=== PATIENT | female | born 1990 | race Caucasian/White ===

== ENCOUNTER → 2017-08-16 16:18 | Outpatient (CLI) | payer OTHER, SELFPAY ==
[2017-08-16 15:56] VITALS: BP 130/72; BMI 23.8
[2017-08-16 17:04] LABS: Absolute Lymphocyte Count 2.72 X10^3/ul (0.83-4.51); Absolute Neutrophil Count 6.4 X10^3/uL (2.0-7.7); Basophil# 0.01 X10^3/uL; Basophil% 0.1 % (0-1); Eosinophil# 0.15 X10^3/uL; Eosinophils% 1.5 % (0-5); Hematocrit 36.7 % (37-47); Hemoglobin 12.9 g/dl (12.0-15.0); Lymphocyte # 2.72 X10^3/ul (4.0); Mean Corp Hgb Conc 35.1 g/gl (32-36); Mean Corpuscular Hgb 29.5 pg (27.0-32.0); Mean Platelet Vol. 9.8 fl (6.2-12.0); Monocyte# 0.79 X10^3/uL; Monocyte% 7.8 % (0-10); Neutrophil # 6.39 X10^3/uL (2.7-7.7); Neutrophil % 63.4 % (47-70); Platelet Count 241 K/mm3 (150-450); RBC Distribution Width CV 12.8 % (11.6-14.6); RBC Distribution Width SD 38.2 fl (35.1-43.9); Red Blood Count 4.37 M/mm3 (4.2-5.4); White Blood Count 10.1 K/mm3 (4.4-11.0)
[2017-08-16 17:10] LABS: POSITIVE COUNT NO; POSITIVE DIFFERENTIAL NO; POSITIVE MORPHOLOGY NO
[2017-08-17 08:56] LABS: Rubella IgG 45.4 IU/mL
[2017-08-18 07:07] LABS: HIV 1/0/2 SCREEN 4TH GEN Non Reactive (Non Reactive)
[2017-08-18 13:14] LABS: HEPATITIS B SURFACE AG Negative (Negative)
[2017-08-19 03:49] LABS: Rapid Plasmin Reagin (RPR) NONREACTIVE (NONREACTIVE)
== END ==
PROVIDERS: Family Provider Family Medicine; PCP Family Medicine; Visit Provider Obstetrics & Gynecology
DX: Z34.90 Encounter for supervision of normal pregnancy, unspecified, unspecified trimester (principal)
CPT/HCPCS: 85025; 86592; 86703; 86762; 86850; 86900; 87340

== ENCOUNTER → 2017-10-10 15:53 | Outpatient (CLI) | payer OTHER, SELFPAY ==
--- NOTE | 2017-10-10 15:54 | US_ITS ---
STUDY: SECOND AND THIRD TRIMESTER OBSTETRICAL ULTRASOUND REASON FOR EXAM: Female, 27 years old. 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 LMP: 05/29/2017 TECHNIQUE: Transabdominal PRIOR ULTRASOUND: None. FINDINGS: There is a single intrauterine fetus. The fetus is in a variable presentation. There is demonstrated cardiac activity with a heart rate of 152 bpm. There is a normal amniotic fluid volume. The largest amniotic fluid pocket measures 4.5 cm. The placenta is posterior in location and is not low lying. There are Grade 1 placental changes. The cervix measures 3.6 cm in length. The bilateral adnexal regions are normal. BIOMETRY: BPD: 4.5: 19 weeks, 5 days HC: 16.5: 19 weeks, 2 days AC: 14.5: 19 weeks, 6 days FL: 3.2: 19 weeks, 6 days CI: FL/BPD: FL/HC: FL/AC: HC/AC: age by current US: 19 weeks, 5 days. MARY by current US: 03/01/2018. Estimated weight: 309 grams, +/- 45 grams, 79 %. age by prior US: weeks, days. MARY by prior US: . Age by LMP: 19 weeks, 1 days. MARY by LMP: 03/05/2018. ANATOMY: Gender: Female Cranium: Normal lateral ventricles. Normal choroid plexus. Normal cerebellum. Normal cisterna magna. Normal face, nose and lips. Chest: Normal 4-chamber heart. Abdomen/Pelvis: Normal diaphragm. Normal stomach. Normal abdominal wall. Normal cord insertion. Normal 3 vessel cord. Normal kidneys. Normal bladder. Spine: Normal cervical spine. Normal thoracic spine. Normal lumbar spine. Normal sacrum. Extremities: Normal bilateral upper extremities. Normal bilateral lower extremities. US/OB Anatomy Scan IMPRESSION: Single live fetus in a variable presentation. No demonstrated anatomic abnormality. Placenta is grade 1 and is not low-lying. Cervix is closed. age by current US: 19 weeks, 5 days. MARY by current US: 03/01/2018. Estimated weight: 309 grams, +/- 45 grams, 79 %. Electronically Signed: Quincy Daley MD at 12:44 EDT , Service support ,
== END ==
PROVIDERS: Visit Provider Obstetrics & Gynecology
DX: Z34.90 Encounter for supervision of normal pregnancy, unspecified, unspecified trimester (principal)
CPT/HCPCS: 76805

== ENCOUNTER → 2017-12-14 13:43 | Outpatient (CLI) | payer OTHER, SELFPAY ==
--- NOTE | 2017-12-14 13:43 | DT_ITS ---
This patient was seen during an EMR downtime December 12, 2017 - December 19, 2017. This patient may have a combination of paper and electronic documentation or all paper documentation. All documentation is viewable within the e-chart portion of [employer] for each patient visit.
[2017-12-19 10:46] LABS: Absolute Lymphocyte Count 1.92 X10^3/ul (0.83-4.51); Absolute Neutrophil Count 7.3 X10^3/uL (2.0-7.7); Basophil% 0.1 % (0-1); Eosinophils% 0.8 % (0-5); Hematocrit 37.2 % (37-47); Hemoglobin 12.8 g/dl (12.0-15.0); Lymphocyte # 1.92 X10^3/ul (4.0); Lymphocyte % 18.7 % (19-41); Mean Corp Hgb Conc 34.4 g/gl (32-36); Mean Corpuscular Hgb 31.8 pg (27.0-32.0); Mean Corpuscular Volume 92.5 fL (81-99); Mean Platelet Vol. 10.5 fl (6.2-12.0); Monocyte% 8.6 % (0-10); Neutrophil # 7.34 X10^3/uL (2.7-7.7); Neutrophil % 71.4 % (47-70); POSITIVE COUNT NO; POSITIVE DIFFERENTIAL NO; POSITIVE MORPHOLOGY NO; Platelet Count 160 K/mm3 (150-450); RBC Distribution Width SD 46.8 fl (35.1-43.9); Red Blood Count 4.02 M/mm3 (4.2-5.4); White Blood Count 10.3 K/mm3 (4.4-11.0)
[2017-12-19 10:55] LABS: Glucose Challenge Gest 1H 50g 115 mg/dL (70-140)
== END ==
PROVIDERS: Visit Provider Obstetrics & Gynecology
DX: Z34.02 Encounter for supervision of normal first pregnancy, second trimester (principal)
CPT/HCPCS: 82950; 85025; 86850; 86900

== ENCOUNTER → 2018-02-02 18:04 | Outpatient (CLI) | payer OTHER, SELFPAY ==
[2018-02-02 18:50] LABS: Protein, Urine (Random) 24.9 mg/dL (<11.9); Protein:Creat Ratio 657 mg/g CRE (0-200)
== END ==
PROVIDERS: Visit Provider Obstetrics & Gynecology
DX: O16.3 Unspecified maternal hypertension, third trimester (principal); Z3A.00 Weeks of gestation of pregnancy not specified
CPT/HCPCS: 82570; 84156

== ENCOUNTER 2018-02-05 22:00 | Outpatient (CLI) | payer OTHER, SELFPAY ==
[2018-02-05 23:18] LABS: Hematocrit 38.7 % (37-47); Hemoglobin 13.2 g/dl (12.0-15.0); Mean Corp Hgb Conc 34.1 g/gl (32-36); Mean Corpuscular Hgb 31.6 pg (27.0-32.0); Mean Corpuscular Volume 92.6 fL (81-99); Mean Platelet Vol. 10.6 fl (6.2-12.0); Platelet Count 149 K/mm3 (150-450); RBC Distribution Width CV 13.9 % (11.6-14.6); RBC Distribution Width SD 46.4 fl (35.1-43.9); Red Blood Count 4.18 M/mm3 (4.2-5.4); White Blood Count 11.6 K/mm3 (4.4-11.0)
[2018-02-05 23:19] LABS: Scan Indicated on CBC? Y/N NO
[2018-02-05 23:24] LABS: Protein, Urine (Random) 11.5 mg/dL (<11.9); Protein:Creat Ratio 125 mg/g CRE (0-200)
[2018-02-05 23:30] LABS: AST(SGOT) 19 U/L (15-37); Alanine Aminotransfer ALT/SGPT 20 U/L (13-56); Creatinine, Serum 0.52 mg/dL (0.55-1.02); EST Glomerular Filtration Rate 153 mL/min (>60); Est Glom Filt Rate - Afr Amer 186 mL/min (>60); Uric Acid 3.9 mg/dL (2.6-6.0)
[2018-02-05] MEDS: Betamethasone/Betamethasone 30 MG/5 ML Vial 12 MG IM (23:37)
[2018-02-05 23:39] LABS: International Normalized Ratio 1.1; Prothrombin Time (Protime)PT. 14.1 SECONDS (11.7-14.9)
[2018-02-05 23:40] LABS: Partial Thromboplast Time 24.6 Seconds (24.1-36.2)
[2018-02-06 00:13] VITALS: BMI 28.0
--- NOTE | 2018-02-08 01:33 | OB.TRI.NOTE ---
- Problem List (1) Elevated blood pressure affecting in third trimester, antepartum Status: Acute History of Present Illness Date of Service: 02/05/18 Was patient seen by the physician?: No Reason For Visit: R/O LABOR Date of Service: 02/05/18 History of Present Illness: elevated bps at home, had proteinuria last week and has been followed closely for this. denies VALENCIA BV Allergies No Known Allergies Allergy (Verified 02/06/18 20:07) - Pertinent Past Medical History Medical History: Past Medical History (Last Reviewed 02/06/18 @ 13:58 by Lalitha Ba) acl reconstructive surgery NST - FHR Rate Baby A Baseline: 140 Variability:: Moderate Accelerations:: 15 x 15 Decelerations:: None NST Reactive:: Yes FHR Category:: Category I Uterine Activity:: no regular Impression/Plan elevated bps at home- normal in triage, normal labs and repeat urine pr/cr ratio is normal. dc home preeclampsia precautions, reacitve nst
== END 2018-02-06 00:35 | disposition home or self-care (01) ==
LOC: WPOUT 22:31 → WP 22:57
PROVIDERS: Visit Provider Obstetrics & Gynecology
DX: O26.893 Other specified pregnancy related conditions, third trimester (principal); R03.0 Elevated blood-pressure reading, without diagnosis of hypertension; Z3A.00 Weeks of gestation of pregnancy not specified
CPT/HCPCS: 36415; 59025; 59050; 82565; 82570; 84156; 84450; 84460; 84550; 85027; 85610; 85730; 96372; 99218; G0378; J0702

== ENCOUNTER → 2018-02-06 14:53 | Outpatient (CLI) | payer OTHER, SELFPAY ==
[2018-02-06 17:16] LABS: Group B Strep DNA By PCR Negative (Negative); Internal Control PASS; Probe Check PASS; Specimen Processing Control PASS
== END ==
PROVIDERS: Visit Provider Nurse Practitioner Women's Health
DX: Z34.90 Encounter for supervision of normal pregnancy, unspecified, unspecified trimester (principal)
CPT/HCPCS: 87081; 87653

== ENCOUNTER 2018-02-06 19:54 | Outpatient (CLI) | payer OTHER, SELFPAY ==
[2018-02-06] MEDS: Betamethasone/Betamethasone 30 MG/5 ML Vial 12 MG IM (20:20)
--- NOTE | 2018-02-08 01:40 | OB.TRI.NOTE ---
- Problem List (1) Elevated blood pressure affecting in third trimester, antepartum Status: Acute History of Present Illness Date of Service: 02/06/18 Was patient seen by the physician?: No Reason For Visit: SHOT History of Present Illness: celestone shot Allergies No Known Allergies Allergy (Verified 02/06/18 20:07) - Pertinent Past Medical History Medical History: Past Medical History (Last Reviewed 02/06/18 @ 13:58 by Lalitha Ba) acl reconstructive surgery Impression/Plan celestone shot number 2 given
== END 2018-02-06 20:28 | disposition home or self-care (01) ==
LOC: OBS 20:02 → WP 20:05
PROVIDERS: Visit Provider Obstetrics & Gynecology
DX: O26.893 Other specified pregnancy related conditions, third trimester (principal); R03.0 Elevated blood-pressure reading, without diagnosis of hypertension
CPT/HCPCS: 96372; 99218; G0378; J0702

== ENCOUNTER 2018-03-06 12:10 | Inpatient (IN) | payer OTHER, SELFPAY ==
[2018-03-06 12:26] VITALS: BMI 28.5
[2018-03-06] MEDS: Lactated Ringers 1,000 ML 50 ML IV ×4 (12:50→22:24)
[2018-03-06 13:08] LABS: Hematocrit 41.3 % (37-47); Hemoglobin 14.6 g/dl (12.0-15.0); Mean Corp Hgb Conc 35.4 g/gl (32-36); Mean Corpuscular Hgb 32.1 pg (27.0-32.0); Mean Corpuscular Volume 90.8 fL (81-99); Mean Platelet Vol. 10.9 fl (6.2-12.0); Platelet Count 164 K/mm3 (150-450); RBC Distribution Width CV 14.6 % (11.6-14.6); RBC Distribution Width SD 47.2 fl (35.1-43.9); Red Blood Count 4.55 M/mm3 (4.2-5.4)
[2018-03-06 13:11] LABS: Scan Indicated on CBC? Y/N NO
[2018-03-06 13:15] LABS: Prothrombin Time (Protime)PT. 12.7 SECONDS (11.7-14.9)
[2018-03-06 13:22] LABS: AST(SGOT) 13 U/L (15-37); Alanine Aminotransfer ALT/SGPT 18 U/L (13-56); Creatinine, Serum 0.64 mg/dL (0.55-1.02); EST Glomerular Filtration Rate 119 mL/min (>60); Est Glom Filt Rate - Afr Amer 144 mL/min (>60); Estimated Creatinine Clearance 135.55 ml/min; Uric Acid 4.9 mg/dL (2.6-6.0)
[2018-03-06] MEDS: fentaNYL-bupivacaine (epidural) 100 ML BAG EPIDURAL ×2 (16:48→22:25)
[2018-03-06] MEDS: Ondansetron 4 MG/2 ML Vial IV (21:12)
[2018-03-06] MEDS: Oxytocin 30 units/NS 500 ml 30 UNITS/500 ML IV.SOLN IV (22:20)
[2018-03-07] MEDS: Oxytocin 30 units/NS 500 ml 30 UNITS/500 ML IV.SOLN 334 UNITS IV (03:43)
--- NOTE | 2018-03-07 04:12 | PCM.HP.OB ---
- Problem List (1) Active labor at term Status: Acute (2) Status: Acute Qualifiers: (3) Supervision of normal Status: Acute Qualifiers: Comment: PRR MARY 03/05/18 [place] yusuf (4) screening encounter Status: Acute Comment: NT screening done 09/01/17-normal Optimal draw time: 09/17-10/01/17 (5) Rh negative status during Status: Acute Qualifiers: Comment: rhogam prn and at 28 weeks History Date of Admission: 03/06/18 Final MARY: 03/05/18 Gestational age: 40 Weeks and 2 Days History of this : This is a 27 year-old, , at 40 weeks gestational age presented IAL with SROM meconium stained fluid. she has had an uncomplicated Medical History: Medical History (Last Reviewed 02/28/18 @ 16:10 by Lalitha Ba) acl reconstructive surgery Allergies No Known Allergies Allergy (Verified 02/28/18 16:09) Home Medications: Home Medications ondansetron 4 mg disintegrating tablet 4 mg PO .COMPLEX PRN #60 tab 07/25/17 vitamin,calcium,dqhotiuu-lpzn-tbdqi acid tablet 1 tab PO QDAY 10/18/17 Smoking Status: Never smoker Alcohol: None Number of Fetus(es): 1 Heart Tracin-140 moderate variability reactive no decels TOCO Analysis: q 2-4 History Past Pregnancies: Past Pregnancies Delivery Date Name GA/Weeks Outcome Route Weight Infant Gender Labor Length Anesthesia Delivery Location Provider FOB Labs: Mom's Labs & Results 03/06/18 03/06/18 03/06/18 12:50 12:50 12:50 WBC Cancelled Corrected WBC Cancelled RBC Cancelled Hgb Cancelled Hct Cancelled MCV Cancelled MCH Cancelled MCHC Cancelled RDW Cancelled RDW Differential Cancelled Plt Count Cancelled MPV Cancelled Diff Path Review Cancelled PT 12.7 INR 1.0 APTT 25.0 Creatinine Cancelled Estim Creat Clear Calc Cancelled Est GFR (MDRD) Af Amer Cancelled Est GFR (MDRD) Non-Af Cancelled Uric Acid Cancelled AST Cancelled ALT Cancelled 03/06/18 03/06/18 12:50 12:50 WBC 12.0 H Corrected WBC RBC 4.55 Hgb 14.6 Hct 41.3 MCV 90.8 MCH 32.1 H MCHC 35.4 RDW 14.6 RDW Differential 47.2 H Plt Count 164 MPV 10.9 Diff Path Review PT INR APTT Creatinine 0.64 Estim Creat Clear Calc 135.55 Est GFR (MDRD) Af Amer 144 Est GFR (MDRD) Non-Af 119 Uric Acid 4.9 AST 13 L ALT 18 Course Did the patient receive Yes care? Labs Blood Type: O RH: NEGATIVE RPR/VDRL/Syphilis Nonreactive Rubella status Immune HbSAg Negative Date Done: 08/16/17 Chlamydia Negative Gonorrhea Negative HIV/AIDS Non-Reactive Group B Strep: Negative Current Obstetrical History Gestational Diabetes No Incompetent Cervix No Infertility No IUGR No Macrosomia No Hypertension/Pre-eclampsia Yes: elevated BP's during Placenta Previa/Abruption No PTL/PROM No Uterine anomaly No Oligohydramnios No Polyhydramnios No Multiple gestation No Past Medical History Asthma No Diabetes No Hypertension No Heart disease No Mitral valve prolapse No Neurologic/Seizure disorder/ No Migraines Kidney disease No Liver disease No Varicosities No Clotting disorders/Hx of DVT No Thyroid Dysfunction No Other medical diseases No Psychiatric disorders No Major trauma No Abnormal PAP smear No Sleep apnea No Mammogram in the last 2 years No Social History Marital Status: Alleged father Yusuf Ellis Hx Smoking No Smoking Status Never smoker Expected Infant Delivery Method: Spontaneous Vaginal Review of Systems Constitutional: Denies: Fever, Malaise Eyes: Denies: Blurred vision, Vision Change HEENT: Denies: Head Aches, Visual Changes Cardiovascular: Denies: Chest Pain, Palpitations Respiratory: Denies: Cough, Shortness of Breath, Wheezing Gastrointestinal: Reports: Abdominal Pain. Denies: Diarrhea, Nausea, Vomiting Genitourinary: Denies: Dysuria, Hematuria Gynecological: Reports: Vaginal discharge Musculoskeletal: Denies: Joint Pain, Muscle pain Skin: Denies: Lesions, Rash Neurological: Denies: Blurred vision, Focal weakness, Headaches Psychiatric: Denies: Anxiety, Depression Endocrine: Denies: Heat/ Cold Intolerance Hematologic/ Lymphatic: Denies: Easy Bruising, Easy Bleeding Physical Exam General: Alert, Cooperative, No apparent distress HEENT: Atraumatic, Normocephalic. Negative for: Thyromegaly, Lymphadenopathy Cardiovascular: Regular rate Lungs: Normal air movement Abdomen: Soft, Non Tender, Gravid Neurological: Deep Tendon Reflexes 2+/4 and Symmetrical, Neuro grossly intact. Negative for: Clonus CUTTER GRINDER: Normal external genitalia. Negative for: Vulvar lesions Estimated gestational size: Appropriate for gestational size Presentation: Cephalic Cervix Dilation (cm): 3 Station: -1 Effacement (%): 90 Assessment/Plan All Active Problems (Last Reviewed 02/28/18 @ 16:10 by Lalitha Ba) Active labor at term (Acute) (Acute) Supervision of normal (Acute) screening encounter (Acute) Rh negative status during (Acute) Elevated blood pressure affecting in third trimester, antepartum (Resolved) This is a 27 year-old, , at 40 weeks gestational age presents IAL with SROM mec fluid Patient presents IAL, plan expectant management for , pitocin if needed. Pain management: plans epidural. GBS neg Management of any complications: none I have reviewed the [facility] and made any clinically relevant updates.
[2018-03-07] MEDS: Oxytocin 30 units/NS 500 ml 30 UNITS/500 ML IV.SOLN 167 UNITS IV (04:13)
--- NOTE | 2018-03-07 04:16 | PCM.OB.VAG ---
- Problem List (1) Active labor at term Status: Acute (2) Status: Acute Qualifiers: (3) Supervision of normal Status: Acute Qualifiers: Comment: PRR MARY 03/05/18 Girl Edgar bubba (4) screening encounter Status: Acute Comment: NT screening done 09/01/17-normal Optimal draw time: 09/17-10/01/17 (5) Rh negative status during Status: Acute Qualifiers: Comment: rhogam prn and at 28 weeks Vaginal Delivery Maternal Presentation: Active Labor ial Amniotic Membrane Rupture Type: Spontaneous at home Amniotic Fluid Description: Thick meconium Final MARY: 03/05/18 Gestational age: 40 Weeks and 2 Days Date of Procedure: 03/07/18 Pre-Operative Diagnosis: ial Post-Operative Diagnosis: same Surgery/ Procedure Performed: Spontaneous Vaginal Delivery Type of Anesthesia: Epidural Description of Procedure: Patient began pushing and delivered the head in the AGUILA presentation. The head was delivered atraumatically. The anterior and posterior shoulders delivered without complication followed by the rest of the and the was placed on the maternal abdomen. Delayed cord clamping was employed for approximately 60 seconds. Cord was clamped and cut and gentle traction was applied to the cord and the placenta delivered spontaneously immediately following it was noted to be intact with three-vessel cord. The perineum and vagina were inspected and noted to have no laceration. EBL was 100 cc. Patient and tolerated delivery well. Presentation: AGUILA Placental Delivery Description: Spontaneous Placenta Disposition: [facility] Cord Entanglement: None Estimated Blood Loss: 100 Infant A gender: Female (1 minute): 8 (5 minute): 9 Episiotomy Description: None Laceration: None Medications given after delivery: IV Pitocin Complications: None
[2018-03-07 08:00] VITALS: BP 128/66; PULSE 75; RESP 24; TEMP 36.5
[2018-03-07 12:26] VITALS: BP 122/66; PULSE 101; RESP 24; TEMP 36.8
[2018-03-07 15:52] VITALS: BP 131/71; PULSE 98; RESP 20; TEMP 36.9
[2018-03-07] MEDS: oxyCODONE 5 MG Tablet PO (19:33)
[2018-03-07 19:35] VITALS: BP 129/71; PULSE 108; RESP 18; TEMP 36.7; O2SAT 98
[2018-03-08] VITALS: BP 127/67; PULSE 76; RESP 18; TEMP 36.2; O2SAT 96
[2018-03-08 04:00] VITALS: BP 124/66; PULSE 70; RESP 18; TEMP 36.3; O2SAT 99
[2018-03-08 08:00] VITALS: BP 129/63; PULSE 85; RESP 16; TEMP 36.5; O2SAT 98
--- NOTE | 2018-03-08 08:03 | PCM.PN.OB ---
Patient Problems: Active and Suspected Problems (Last Reviewed 02/28/18 @ 16:10 by Lalitha Ba) Active labor at term (Acute) Subjective: No CP, LOF. Doing well. - Physical Exam General: Alert, Oriented x3 Abdomen: Soft, Non Tender, - - FF below U Vital Signs Temp Pulse Resp BP Pulse Ox 97.4 F L 70 18 124/66 H 99 03/08/18 04:00 03/08/18 04:00 03/08/18 04:00 03/08/18 04:00 03/08/18 04:00 Oxygen Delivery Method Room Air Weight: 187 lb 9.6 oz Body Mass Index (BMI) 28.5 Intake and Output for Last 24 Hours 03/06/18 03/07/18 03/08/18 23:59 23:59 23:59 Output Total 1000 / 1000 Balance -1000 / -1000 Laboratory Tests Past 24 Hrs 03/06/18 12:50 Blood Type O NEGATIVE Antibody Screen NEGATIVE Medical Necessity - Tobacco Use Smoking Status: Never smoker Assessment/Plan All Active Problems (Last Reviewed 02/28/18 @ 16:10 by Lalitha Ba) Active labor at term (Acute) (Acute) Supervision of normal (Acute) screening encounter (Acute) Rh negative status during (Acute) Elevated blood pressure affecting in third trimester, antepartum (Resolved) PPD #1: Routine care. Pain controlled. . DC home today
--- NOTE | 2018-03-08 08:24 | PCM.DCVAG ---
Additional Instructions: If you experience any of the following, contact your healthcare provider. Bleeding that soaks a pad every hour for 2 hours Fever 100.4 or higher Unrelieved incision or abdominal pain Swelling, redness, discharge or bleeding from your incision or episiotomy site Your incision begins to separate Problems urinating (including inability to urinate or burning while urinating). Visual changes Severe headache Flu-like symptoms Pain or redness in one of both of your breasts Pain, warmth, tenderness or swelling in your legs, especially the calf area Frequent nausea and vomiting Symptoms of depression or anxiety If you experience any of the following, call 911 or go to the nearest Emergency Room. Chest pain Problems breathing Seizure activity Partial or complete paralysis of a body part, slurred speech, weakness or drooping of the face, or a sudden inability to walk or hold your balance Allergies/Adverse Reactions: Allergies No Known Allergies Allergy (Verified 02/28/18 16:09) Medications to take at Discharge ondansetron 4 mg disintegrating tablet 4 mg PO .COMPLEX PRN #60 tab 07/25/17 vitamin,calcium,wmucxtai-pwtg-tjavc acid tablet 1 tab PO QDAY 10/18/17 Test Results: Test results from this visit will be discussed in further detail at your follow-up appointment, if applicable.
== END 2018-03-08 13:40 | disposition home or self-care (01) | DRG 775 ==
PROVIDERS: Admitting Provider Obstetrics & Gynecology; Visit Provider Obstetrics & Gynecology
DX: O48.0 Post-term pregnancy (principal); Z3A.40 40 weeks gestation of pregnancy; Z37.0 Single live birth
CPT/HCPCS: 59050; 82565; 84450; 84460; 84550; 85027; 85461; 85610; 85730; 86850; 86900; 90384; 99218; J7120; G0378; J2405; J2790

== ENCOUNTER 2018-03-13 13:30 | Outpatient (CLI) | payer OTHER, SELFPAY | END 2018-03-13 14:45 | disposition home or self-care (01) | LOC: WPOUT 13:42 | PROVIDERS: Visit Provider Obstetrics & Gynecology | DX: O92.79 Other disorders of lactation (principal) | CPT/HCPCS: 96152 ==

== ENCOUNTER → 2018-04-18 20:35 | Outpatient (CLI) | payer OTHER, SELFPAY ==
[2018-04-21 14:20] LABS: HPV Reflexed? NOT INDICATED
== END ==
PROVIDERS: Referring Provider Obstetrics & Gynecology; Visit Provider Obstetrics & Gynecology
DX: Z12.4 Encounter for screening for malignant neoplasm of cervix (principal)
CPT/HCPCS: 88175; G0145

== ENCOUNTER → 2020-04-28 | Outpatient (CLI) | payer OTHER, SELFPAY ==
[2020-04-28 16:00] VITALS: BMI 25.2
[2020-04-28 18:48] LABS: Amphetamine Urine VISTA NEGATIVE (<1000 ng/mL); Barbiturate Urine VISTA NEGATIVE (< 200 ng/mL); Benzodiazepine Urine VISTA NEGATIVE (< 200 ng/mL); Cocaine Urine VISTA NEGATIVE (< 300 ng/mL); Ecstacy Urine VISTA NEGATIVE (< 500 ng/mL); Methadone Urine VISTA NEGATIVE (< 300 ng/mL); PCP Urine VISTA NEGATIVE (< 25 ng/mL); THC Urine VISTA NEGATIVE (< 50 ng/mL); Vista UDS pH Range 6
== END | disposition home or self-care (01) ==
LOC: LABSPEC 17:55
PROVIDERS: Visit Provider Obstetrics & Gynecology
DX: Z34.90 Encounter for supervision of normal pregnancy, unspecified, unspecified trimester (principal)
CPT/HCPCS: 80307; 87086

== ENCOUNTER → 2020-06-30 09:38 | Outpatient (CLI) | payer OTHER, SELFPAY ==
[2020-06-30 09:14] VITALS: BMI 27.6
[2020-06-30 10:30] LABS: Absolute Lymphocyte Count 2.02 X10^3/uL (0.83-4.51); Absolute Neutrophil Count 7.5 X10^3/uL (2.0-7.7); Basophil# 0.02 X10^3/uL; Basophil% 0.2 % (0-1); Hemoglobin 13.2 g/dL (12.0-15.0); Lymphocyte # 2.02 X10^3/ul (4.0); Lymphocyte % 19.4 % (19-41); Mean Corp Hgb Conc 34.7 g/dL (32-36); Mean Corpuscular Hgb 31.3 pg (27.0-32.0); Mean Platelet Vol. 10.3 fl (6.2-12.0); Monocyte# 0.71 X10^3/uL; Monocyte% 6.8 % (0-10); NRBC Flagged by Analyzer 0 % (0-5); Neutrophil # 7.49 X10^3/uL (2.7-7.7); Neutrophil % 72.1 % (47-70); Platelet Count 178 K/mm3 (150-450); RBC Distribution Width CV 13.3 % (11.6-14.6); RBC Distribution Width SD 43.2 fl (35.1-43.9); Red Blood Count 4.22 M/mm3 (4.2-5.4); White Blood Count 10.4 K/mm3 (4.4-11.0)
[2020-06-30 10:46] LABS: Glucose Challenge Gest 1H 50g 97 mg/dL (70-140)
[2020-06-30 10:47] LABS: ALB/GLOB Ratio 0.9 RATIO (0.9-2.4); AST(SGOT) 12 U/L (15-37); Alanine Aminotransfer ALT/SGPT 16 U/L (13-56); Alkaline Phosphatase 69 U/L (45-117); Anion Gap 6 (5-15); BUN 6 mg/dL (7-18); BUN/Creat Ratio 10.8 RATIO (10-20); Calcium,Total 8.3 mg/dL (8.5-10.1); Chloride 107 mmol/L (98-107); Creatinine, Serum 0.55 mg/dL (0.55-1.02); EST Glomerular Filtration Rate 139 mL/min (>60); Est Glom Filt Rate - Afr Amer 168 mL/min (>60); Globulin 3.2 g/dL (2.2-4.2); Glucose 97 mg/dL (74-106); Potassium 3.3 mmol/L (3.5-5.1); Protein, Total 6.2 g/dL (6.4-8.2); Sodium Level 138 mmol/L (136-145)
[2020-06-30 13:49] LABS: Protein, Urine (Random) 9.9 mg/dL (<11.9); Protein:Creat Ratio 61 mg/g CRE (0-200)
== END ==
PROVIDERS: Nurse Practitioner Women's Health; Referring Provider Obstetrics & Gynecology; Visit Provider Obstetrics & Gynecology
DX: O16.2 Unspecified maternal hypertension, second trimester (principal); O09.90 Supervision of high risk pregnancy, unspecified, unspecified trimester; O26.899 Other specified pregnancy related conditions, unspecified trimester; Z67.91 Unspecified blood type, Rh negative; Z13.1 Encounter for screening for diabetes mellitus; Z3A.00 Weeks of gestation of pregnancy not specified
CPT/HCPCS: 36415; 80053; 82570; 82950; 84156; 85025; 86850; 86900; 86901

== ENCOUNTER 2020-08-28 15:44 | Outpatient (CLI) | payer OTHER, SELFPAY ==
[2020-08-28 15:26] VITALS: BMI 29.0
[2020-08-28 16:05] VITALS: TEMP 36.9
[2020-08-28 16:07] VITALS: TEMP 36.9; O2SAT 99; BMI 29.1
[2020-08-28 16:12] VITALS: BP 127/74; PULSE 81
[2020-08-28 16:25] LABS: Protein, Urine (Random) 16.2 mg/dL (<11.9); Protein:Creat Ratio 301 mg/g CRE (0-200)
[2020-08-28 16:29] VITALS: BP 131/77; PULSE 78
[2020-08-28 16:38] LABS: Hematocrit 39.2 % (37-47); Hemoglobin 13.5 g/dL (12.0-15.0); Mean Corp Hgb Conc 34.4 g/dL (32-36); Mean Corpuscular Volume 90.1 fL (81-99); Mean Platelet Vol. 11.2 fl (6.2-12.0); Platelet Count 187 K/mm3 (150-450); RBC Distribution Width CV 13.3 % (11.6-14.6); RBC Distribution Width SD 43.2 fl (35.1-43.9); Red Blood Count 4.35 M/mm3 (4.2-5.4); White Blood Count 15.2 K/mm3 (4.4-11.0)
[2020-08-28 16:43] VITALS: BP 126/73; PULSE 81
[2020-08-28 16:58] LABS: AST(SGOT) 13 U/L (15-37); Alanine Aminotransfer ALT/SGPT 18 U/L (13-56); Creatinine, Serum 0.57 mg/dL (0.55-1.02); EST Glomerular Filtration Rate 134 mL/min (>60); Est Glom Filt Rate - Afr Amer 162 mL/min (>60); Estimated Creatinine Clearance 148.23 ml/min; Uric Acid 4.4 mg/dL (2.6-6.0)
[2020-08-28 16:59] VITALS: BP 124/71; PULSE 81
--- NOTE | 2020-08-28 17:29 | OB.TRI.PN ---
Progress Notes Date of Service: 08/28/20 Progress Note: Patient presents for triage evaluation secondary to elevated blood pressure in the office. Blood pressure is normal while in triage. Preeclampsia labs normal aside from protein to creatinine ratio of 301. FHT: Moderate variability reactive no decelerations category I tracing [place]: No contractions Assessment and plan: Reactive NST, reassuring maternal and status patient discharged to home to follow-up at next scheduled office visit. See problem list details for additional plan information. Laboratory Studies: Laboratory Tests 08/28/20 08/28/20 08/28/20 Range/Units 16:15 16:15 15:51 WBC 15.2 H (4.4-11.0) K/mm3 RBC 4.35 (4.2-5.4) M/mm3 Hgb 13.5 (12.0-15.0) g/dL Hct 39.2 (37-47) % MCV 90.1 (81-99) fL MCH 31.0 (27.0-32.0) pg MCHC 34.4 (32-36) g/dL RDW Std Deviation 43.2 (35.1-43.9) fl RDW Coeff of Isabell 13.3 (11.6-14.6) % Plt Count 187 (150-450) K/mm3 MPV 11.2 (6.2-12.0) fl Creatinine 0.57 (0.55-1.02) mg/dL Estim Creat Clear Calc 148.23 ml/min Est GFR (MDRD) Af Amer 162 (>60) mL/min Est GFR (MDRD) Non-Af 134 (>60) mL/min Uric Acid 4.4 (2.6-6.0) mg/dL AST 13 L (15-37) U/L ALT 18 (13-56) U/L U Random Total Protein 16.2 H (<11.9) mg/dL Urine Creatinine 53.80 (NO RANGE EST.) mg/dL Protein/Creatinin Ratio 301 H (0-200) mg/g CRE Multi Select Codes - Urinary/Genital Urinary/Genital CPT Codes: 63002-21 non-stress test Interp
== END 2020-08-28 17:10 | disposition home or self-care (01) ==
LOC: LABSPEC 15:45 → WPOUT 16:00 → WP 16:01
PROVIDERS: Obstetrics & Gynecology; Referring Provider Obstetrics & Gynecology; Visit Provider Obstetrics & Gynecology
DX: O16.3 Unspecified maternal hypertension, third trimester (principal); Z3A.00 Weeks of gestation of pregnancy not specified
CPT/HCPCS: 36415; 59025; 59050; 82565; 82570; 84156; 84450; 84460; 84550; 85027; 87081; 99218; G0378

== ENCOUNTER 2020-09-01 19:10 | Inpatient (IN) | payer OTHER, SELFPAY ==
[2020-09-01 19:30] VITALS: BP 134/82; PULSE 91; PULSE 93; TEMP 36.7; O2SAT 98
[2020-09-01] MEDS: Lactated Ringers 1,000 ML 50 ML IV (19:40)
[2020-09-01 20:11] VITALS: BMI 28.7
[2020-09-01 20:11] LABS: Absolute Lymphocyte Count 3.05 X10^3/uL (0.83-4.51); Absolute Neutrophil Count 9.7 X10^3/uL (2.0-7.7); Basophil# 0.03 X10^3/uL; Basophil% 0.2 % (0-1); Eosinophil# 0.13 X10^3/uL; Eosinophils% 0.9 % (0-5); Hemoglobin 13.5 g/dL (12.0-15.0); Lymphocyte # 3.05 X10^3/ul (4.0); Lymphocyte % 22.1 % (19-41); Mean Corp Hgb Conc 34.6 g/dL (32-36); Mean Corpuscular Hgb 31.3 pg (27.0-32.0); Mean Corpuscular Volume 90.5 fL (81-99); Monocyte% 5.8 % (0-10); NRBC Flagged by Analyzer 0 % (0-5); Neutrophil # 9.68 X10^3/uL (2.7-7.7); Neutrophil % 70.4 % (47-70); Platelet Count 198 K/mm3 (150-450); RBC Distribution Width CV 13.2 % (11.6-14.6); RBC Distribution Width SD 43.2 fl (35.1-43.9); Red Blood Count 4.31 M/mm3 (4.2-5.4); White Blood Count 13.8 K/mm3 (4.4-11.0)
[2020-09-01 20:21] LABS: Prothrombin Time (Protime)PT. 12.8 SECONDS (11.7-14.9)
[2020-09-01 20:22] LABS: Partial Thromboplast Time 25.2 Seconds (24.1-36.2)
[2020-09-01 20:22] LABS: Protein, Urine (Random) 10.5 mg/dL (<11.9); Protein:Creat Ratio 122 mg/g CRE (0-200)
[2020-09-01 20:29] LABS: AST(SGOT) 17 U/L (15-37); Alanine Aminotransfer ALT/SGPT 18 U/L (13-56); Creatinine, Serum 0.68 mg/dL (0.55-1.02); EST Glomerular Filtration Rate 110 mL/min (>60); Est Glom Filt Rate - Afr Amer 133 mL/min (>60); Estimated Creatinine Clearance 124.25 ml/min; Uric Acid 4.6 mg/dL (2.6-6.0)
[2020-09-01] MEDS: miSOPROStol 25 MCG TABLET VAGINAL (20:43)
[2020-09-01 22:57] VITALS: BP 135/65; PULSE 84; TEMP 37; O2SAT 98
[2020-09-02] VITALS (57 sets, daily range): BP systolic 114–145; BP diastolic 60–90; PULSE 62–96; RESP 16; TEMP 36.5–37.5; O2SAT 81–100
[2020-09-02] MEDS: miSOPROStol 25 MCG TABLET 50 MCG VAGINAL (00:35)
[2020-09-02] MEDS: DiphenhydrAMINE 25 MG Capsule 50 MG PO (00:56)
[2020-09-02] MEDS: Acetaminophen 500 MG Tablet PO (00:56)
[2020-09-02] MEDS: fentaNYL 100 MCG/2 ML Ampul IV (03:12)
[2020-09-02] MEDS: Lactated Ringers 500 ML 999 ML IV (04:47)
[2020-09-02] MEDS: fentaNYL-bupivacaine (epidural) 100 ML BAG EPIDURAL ×2 (05:49→10:52)
--- NOTE | 2020-09-02 06:01 | HP.PCM_ITS ---
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 Seen by genetic counseling. us with [facility] 07/24. Mom has same genetic deletion. This is significantly reassuring. nl echo-07/24/20 (3) Elevated blood pressure affecting in third trimester, antepartum Status: Acute Comment: 08/28 elevated- to l and d for evaluation with labs (4) Status: Acute Qualifiers: Comment: abnl NIPT. NIA from [place]. anatomy. (5) Rh negative status during Status: Acute Qualifiers: Comment: rhogam PRN and at 28 weeks (6) Supervision of high risk , antepartum Status: Acute Comment: PRR MARY 10/02/20 Girl Nguyen Hernández, Spouse Yusuf History and Physical Date of Admission: 09/02/20 Intake Vital Signs 08/28/20 Height 5 ft 8 in 08/28/20 Weight: 191 lb 6 oz 08/28/20 BMI 29.0 08/28/20 BP 132/90 H Intake Visit Reasons: 36 WK OB Mail Order Sorter Required: No Is patient in pain?: No Allergies No Known Allergies Allergy (Verified 08/28/20 15:27) Medications prenat.vits,rosemary,qic-goxm-uupbj 1 tab PO QDAY 10/18/17 history Confirmed 08/28/20 ondansetron 4 mg disintegrating tablet 4 mg PO Q8H PRN #60 tab 04/07/20 Rx Confirmed 08/28/20 Last Menstral Period: 12/19/19 Zika: Zika virus screening: Negative : No PFSH PFSH Surgical History History of placement of ear tubes (Acute) Hx of LASIK (Acute) S/P ACL surgery (Acute) Family History Father Heart disease Hypertension Brother CVA (cerebral vascular accident) Brother No problems noted. Grandfather CVA (cerebral vascular accident) Grandmother Hypothyroidism Social History (Updated 08/28/20 @ 15:[address] Aretha Ness MD) Smoking Status: Never smoker alcohol intake: never substance use type: does not use what type of physical activity do you participate in: other details: cardio, additional frequency: 3-4 times per week seatbelt use: always do you feel safe at home: Yes additional social history: Spouse Yusuf davis Pregancy History 2 Elective abortions Hx Para 1 Spontaneous abortions Hx # Term Pregnancies 1 Ectopic pregnancies Hx # Pregnancies Multiple births # of living children 1 Past Pregnancies Del. Date Name GA/Weeks Outcome Route Bth Weight Infant Gen Labor Lgth Anesthesia Del Locatn Provider FOB 03/06/18 Edgar 40 live - full term NS VD Female epidural [facility] Delivery Date: 03/06/18 Meconium Eileen Taylor HPI 36 WK OB: Details: EUGENIA ASTUDILLO is a 30 year old G2, P1 with new onset gestational hypertension presents for induction of labor secondary to this. Patient has had mildly elevated blood pressures in the 140s over 90s at home and in the office and therefore is here for induction today. She denies any headache blurry vision nausea or vomiting. OB Visit MARY Calculator Estimated Delivery Date Method Current WG Current Estimate 09/22/20 Manual 36w 3d based on tri US Expected Delivery Route/Plan Labor Preferences- CB/BF classes: no labor support person: yusuf labor intervention preferences: pain management options preferred: epidural! cut cord/dad catch: yes : yes PP control planned: IUD discussed possible routes of delivery and associated risks: special requests: Specific Issue/Plans flu vaccine: given tdap vaccine: given rhogam: yes LARC form signed: yes Problem list reviewed and updated with the most current plan of care details and appropriate orders placed. Relevant counseling for the gestational age provided. Continue routine care and follow up unless otherwise noted in visit notes/problem list details Initial Weight: Not Recorded Date EGA Weight BP Urine Prot Glucose FHR FuHt Pres Dilation Effaced St Visit Note 04/02/20 15w 2d 167 lb 6 oz 132/66 Negative Negative 145 GP - NIA. Denies cramping or bleeding. +jazzmine for tri 13 - CVS shows microdeletion. 04/28/20 19w 0d 166 lb 116/76 145 SM- NO VB CRAMPING. scheduled for anatomy scan SM- NO VB CRAMPING. scheduled for anatomy scan. 11/23/20 24w 0d 171 lb 4 oz 126/70 Negative Negative 161 MH-NO VB, LOF. MH-NO VB, LOF. Good FM. 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 MH-NO VB, LOF. Good FM. 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 echo is planned 06/30/20 28w 0d 182 lb 136/100 128/78 Trace Negative 150 28 SM- no vb lof good fm no regular ctx. she is feeling palpitations and shortness of breath in the morning. 07/18/20 30w 4d 184 lb 124/80 145 30 SM- no vb lof good fm n oregular ctx discussed 08/01/20 32w 4d 184 lb 4 oz 136/78 Negative Negative 155 32 Cephalic GP - no LOF, VB, DFM, ctx. Had episode of sweating, lightheadedness, blurred vision, heart racing, and weakness that lasted ~2 hours. No episodes since this time. sounds consistent with vasovagal episode. Discussed increased fluids and snacking. If continues to happen, will send to cardiology. 08/14/20 34w 3d 187 lb 132/76 Negative Negative 146 34 MH-No VB, LOF. Good FM. No CTX. 08/28/20 36w 3d 191 lb 6 oz 132/90 1 0 -4 SM- elevated bp to l and d for evaluation. gbs collected ROS Const Reports system reviewed and no additional complaints, except as documented Card Reports system reviewed and no additional complaints, except as documented Resp Reports system reviewed and no additional complaints, except as documented GI Reports system reviewed and no additional complaints, except as documented, Reports nausea Reports system reviewed and no additional complaints, except as documented Musc Reports system reviewed and no additional complaints, except as documented all other systems reviewed and negative Exam Const General: cooperative, healthy appearing, comfortable HENPR Head: normal to inspection Nose: external nose normal Face and sinus: normal facial exam Neck Neck: normal visual inspection, full ROM, no lymphadenopathy Thyroid: thyroid normal Chest Chest palpation & inspection: normal inspection of the chest Resp Effort & Inspection: normal respiratory effort GI Inspection: normal to inspection Palpation: soft, other (gravid uterus) Other: infant vertex and appropriate size for gestational age Other: Cervical Exam: 3 Extrem General: pedal edema ACOG First Trimester First Trimester: Discussed Diagnostics Diagnostics Diagnostics Blood Type O NEGATIVE 06/30/20 Antibody Screen NEGATIVE 06/30/20 Glucose 1 Hr 50 gm 97 mg/dL (70-140) 06/30/20 Pap Smear Negative 02/28/20 Hgb 13.2 g/dL (12.0-15.0) 06/30/20 Hct 38.0 % (37-47) 06/30/20 Details: HIV: Urine Culture: Sequential Screen: NIPT Screen: Assessment & Plan Problems 1. 36 weeks gestation of Z3A.36 electronic covid test ordered 08/27/20 2. Rh negative status during O26.899; Z67.91 rhogam PRN and at 28 weeks 3. Z34.90 abnl NIPT. NIA from [place]. nl anatomy. 4. Supervision of high risk , antepartum O09.90 PRR MARY 10/02/20 Girl Nguyen Hernández, Spouse Yusuf 5. 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 Seen by genetic counseling. us with [facility] 07/24. Mom has same genetic deletion. This is significantly reassuring. nl echo-07/24/20 6. Elevated blood pressure affecting in third trimester, antepartum O16.3 08/28 elevated- to l and d for evaluation with labs 30-year-old G2, P1 at 37 weeks plan induction of labor secondary to gestational hypertension Patient presents IOL, plan management for with Cytotec then Pitocin and [place] bulb, AROM when able. Pain management: Plans epidural. GBS negative. Management of any complications: Elevated blood pressures?monitor and treat if severely elevated. I have reviewed the [facility] and made any clinically relevant updates. Orders Orders: POC Urinalysis 2 Dip (Clinic) Today Culture, Group B Streptococcus Today O09.90 Protein+Creatinine Ratio,Urine Today O16.3 Coding Level of Care Code OB Routine Diagnoses 36 weeks gestation of Z3A.36 Rh negative status during O26.899; Z67.91 Z34.90 Supervision of high risk , antepartum O09.90 Abnormal genetic test R89.8 Elevated blood pressure affecting in third trimester, antepartum O16.3
[2020-09-02] MEDS: 0.9% Normal Saline Single 100 ML IV.SOLN. INTRA-UTER (06:13)
[2020-09-02] MEDS: Oxytocin 30 units/NS 500 ml 30 UNITS/500 ML IV.SOLN IV (06:15)
[2020-09-02] MEDS: Ondansetron 4 MG/2 ML Vial IV (06:54)
[2020-09-02] MEDS: Lactated Ringers 1,000 ML 200 ML IV ×2 (08:48→14:09)
--- NOTE | 2020-09-02 13:26 | PCM.PN.BLA ---
Progress Note arom clear fluid 5 cm comfortable with epidural cat I tracing continue pit per protocol STROKE Vital Signs/Narrative: Vital Signs Pulse BP Pulse Ox 09/02/20 12:18 65 117/62 99 09/02/20 11:26 87 123/66 H 99 09/02/20 10:12 77 100 09/02/20 10:09 71 134/69 H 09/02/20 09:49 74 120/71 98
[2020-09-02] MEDS: Oxytocin 30 units/NS 500 ml 30 UNITS/500 ML IV.SOLN 334 UNITS IV (14:35)
--- NOTE | 2020-09-02 17:21 | PCM.OPRPT ---
Problem List (1) 36 weeks gestation of Status: Acute Comment: electronic covid test ordered 08/27/20 (2) Abnormal genetic test Status: Acute Comment: Abnl NIPT trisomy 13. 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 Seen by genetic counseling. us with [facility] 07/24. Mom has same genetic deletion. This is significantly reassuring. nl echo-07/24/20 (3) Elevated blood pressure affecting in third trimester, antepartum Status: Acute Comment: 08/28 elevated- to l and d for evaluation with labs (4) Status: Acute Qualifiers: Comment: abnl NIPT. NIA from [facility] anatomy. (5) Rh negative status during Status: Acute Qualifiers: Comment: rhogam PRN and at 28 weeks (6) Supervision of high risk , antepartum Status: Acute Comment: PRR MARY 10/02/20 Girl Nguyen Hernández, Spouse Yusuf Vaginal Delivery Maternal Presentation: Medically Indicated Induction iol ghtn Method of Induction: Pitocin Amniotic Membrane Rupture Type: Artificial Amniotic Fluid Description: Clear Final MARY: 09/22/20 Gestational age: 37 Weeks and 1 Days Date of Procedure: 09/02/20 Pre-Operative Diagnosis: iol ghtn Post-Operative Diagnosis: same Surgery/ Procedure Performed: Spontaneous Vaginal Delivery Type of Anesthesia: Epidural Description of Procedure: Patient began pushing and delivered the head in the AGUILA presentation. The head was delivered atraumatically. The anterior and posterior shoulders delivered without complication followed by the rest of the infant and the infant was placed on the maternal abdomen. Delayed cord clamping was employed for approximately 60 seconds. Cord was clamped and cut and gentle traction was applied to the cord and the placenta delivered spontaneously immediately following it was noted to be intact with three-vessel cord. The perineum and vagina were inspected and noted to have no laceration. EBL was 100 cc. Patient and tolerated delivery well. Presentation: AGUILA Placental Delivery Description: Spontaneous Placenta Disposition: [facility] Cord Entanglement: None Estimated Blood Loss: 100 Infant A gender: Female Episiotomy Description: None Laceration: None Medications given after delivery: IV Pitocin Complications: None Multi Select Codes - Urinary/Genital Urinary/Genital CPT Codes: 50061 Vaginal Delivery [facility]
[2020-09-03 03:30] VITALS: BP 111/59; PULSE 88; RESP 16; TEMP 36.5; O2SAT 98
--- NOTE | 2020-09-03 08:03 | PCM.PN.OB ---
Patient Problems: Active and Suspected Problems (Last Reviewed 08/28/20 @ 15:26 by Neyda Antonio) Elevated blood pressure affecting in third trimester, antepartum (Acute) 08/28 elevated- to l and d for evaluation with labs 36 weeks gestation of (Acute) electronic covid test ordered 08/27/20 Rh negative status during (Acute) rhogam PRN and at 28 weeks (Acute) abnl NIPT. NIA from [facility]. nl anatomy. Supervision of high risk , antepartum (Acute) PRR MARY 10/02/20 Girl Nguyen Hernández, Spouse Yusuf Abnormal genetic test (Acute) Abnl NIPT trisomy 13. 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 Seen by genetic counseling. us with [facility] 07/24. Mom has same genetic deletion. This is significantly reassuring. nl echo-07/24/20 Subjective: Patient doing well without complaints. Tolerating PO. Ambulating and voiding without difficulty. Pump and feeding well. Denies chest pain, shortness of breath, calf pain/swelling, fevers, chills, lightheadedness. - Physical Exam Vitals/I&O's: Vital Signs Temp Pulse Resp BP Pulse Ox 97.7 F L 88 16 111/59 L 98 09/03/20 03:30 09/03/20 03:30 09/03/20 03:30 09/03/20 03:30 09/03/20 03:30 Oxygen Delivery Method Room Air Weight: 189 lb Body Mass Index (BMI) 28.7 Intake and Output for Last 24 Hours 09/01/20 09/02/20 09/03/20 23:59 23:59 23:59 Intake Total 3157.27 / 3157.27 Output Total 500 / 500 Balance 2657.27 / 2657.27 General: Alert, Oriented x3 Abdomen: Soft, Non Tender, - - FF below U Microbiology Past 72 Hours 09/01/20 19:50 Mucosa - Nose SARS-CoV-2 Antigen (Rapid) - Final Laboratory Results 09/02/20 18:55: Screen NEGATIVE, Baby's Blood Type O POSITIVE, Baby's ANGELA NEGATIVE Current Medications Acetaminophen (Acetaminophen 500 Mg Tablet) 1,000 mg PO Q8H PRN PRN PRN Reason: Pain Score 1-3 Bisacodyl (Bisacodyl 10 Mg Suppository) 10 mg RECTAL UD PRN PRN Reason: If no BM Dibucaine (Dibucaine 30 Gm Tube) 1 applic TOPICAL TID PRN PRN; Protocol PRN Reason: Discomfort Hydrocortisone (Hydrocortisone 2.5% Crm) 1 applic TOPICAL TID PRN PRN; Protocol PRN Reason: Discomfort Methylergonovine Maleate (Methylergonovine 0.2 Mg/Ml Ampul) 0.2 mg IM X1 PRN PRN Reason: Excess bleeding/uterine atony Naproxen (Naproxen 250 Mg Tablet) 500 mg PO Q8H PRN PRN PRN Reason: Pain Score 1-3 Ondansetron HCl (Ondansetron 4 Mg/2 Ml Vial) 4 mg IV Q4H PRN PRN PRN Reason: Nausea Oxycodone HCl (Oxycodone 5 Mg Tablet) 5 - 10 mg PO Q4H PRN PRN PRN Reason: Pain Score 4-10 Multivit/Folic Acid/Iron ( Vits Tablet) 1 tablet PO DAILY@1200 CARLA Senna/Docusate Sodium (Senna/Docusate Sodium 1 Tablet) 1 - 2 tablet PO DAILY PRN PRN PRN Reason: Constipation Simethicone (Simethicone 80 Mg Tablet) 80 mg PO PCHS PRN PRN Reason: Indigestion/Stomach pain Sodium Chloride (0.9% Saline Lock 10 Ml Syringe) 5 - 15 ml IV UD PRN PRN Reason: SALINE FLUSH Medical Necessity - Tobacco Use Smoking Status: Never smoker Assessment/Plan All Active Problems (Last Reviewed 08/28/20 @ 15:26 by Neyda Antonio) Elevated blood pressure affecting in third trimester, antepartum (Acute) 36 weeks gestation of (Acute) Rh negative status during (Acute) (Acute) Supervision of high risk , antepartum (Acute) Abnormal genetic test (Acute) Active labor at term (Resolved) screening encounter (Resolved) Elevated blood pressure affecting in third trimester, antepartum (Resolved) Low blood potassium (Resolved) (Resolved) Rh negative status during (Resolved) Supervision of normal (Resolved) mutation of unknown (Resolved) s/p PPD # 1 1. routine post delivery care 2. pumping and feeding- support given 3. rh negative 4. rubella immune 5. home today
--- NOTE | 2020-09-03 08:05 | DCINST_ITS ---
Additional Instructions: If you experience any of the following, contact your healthcare provider. * Bleeding that soaks a pad every hour for 2 hours * Fever 100.4 or higher * Unrelieved incision or abdominal pain * Swelling, redness, discharge or bleeding from your incision or episiotomy site * Your incision begins to separate * Problems urinating (including inability to urinate or burning while urinating). * Visual changes * Severe headache * Flu-like symptoms * Pain or redness in one of both of your breasts * Pain, warmth, tenderness or swelling in your legs, especially the calf area * Frequent nausea and vomiting * Symptoms of depression or anxiety If you experience any of the following, call 911 or go to the nearest Emergency Room. * Chest pain * Problems breathing * Seizure activity * Partial or complete paralysis of a body part, slurred speech, weakness or drooping of the face, or a sudden inability to walk or hold your balance Allergies/Adverse Reactions: Allergies No Known Allergies Allergy (Verified 09/01/20 20:10) Medications to take at Discharge prenat.vits,rosemary,[id number] 1 tab PO QDAY 10/18/17 Primary Care Physician: Care Physician,No Primary [Primary Care Provider] - Test Results: Test results from this visit will be discussed in further detail at your follow- up appointment, if applicable.
--- NOTE | 2020-09-03 08:05 | PCM.DCVAG ---
Additional Instructions: If you experience any of the following, contact your healthcare provider. Bleeding that soaks a pad every hour for 2 hours Fever 100.4 or higher Unrelieved incision or abdominal pain Swelling, redness, discharge or bleeding from your incision or episiotomy site Your incision begins to separate Problems urinating (including inability to urinate or burning while urinating). Visual changes Severe headache Flu-like symptoms Pain or redness in one of both of your breasts Pain, warmth, tenderness or swelling in your legs, especially the calf area Frequent nausea and vomiting Symptoms of depression or anxiety If you experience any of the following, call 911 or go to the nearest Emergency Room. Chest pain Problems breathing Seizure activity Partial or complete paralysis of a body part, slurred speech, weakness or drooping of the face, or a sudden inability to walk or hold your balance Allergies/Adverse Reactions: Allergies No Known Allergies Allergy (Verified 09/01/20 20:10) Medications to take at Discharge prenat.vits,rosemary,[id number] 1 tab PO QDAY 10/18/17 Primary Care Physician: Care Physician,No Primary [Primary Care Provider] - Test Results: Test results from this visit will be discussed in further detail at your follow-up appointment, if applicable.
[2020-09-03 09:07] VITALS: BP 117/62; PULSE 71; RESP 18; TEMP 36.6; O2SAT 98
[2020-09-03] MEDS: Prenatal Vits Tablet 1 TABLET PO (11:40)
[2020-09-03 11:47] VITALS: BP 120/68; PULSE 77; RESP 20; TEMP 36.7; O2SAT 97
[2020-09-03 16:00] VITALS: BP 124/78; PULSE 68; RESP 20; TEMP 36.5; O2SAT 100
== END 2020-09-03 16:20 | disposition home or self-care (01) | DRG 807 ==
PROVIDERS: Admitting Provider Obstetrics & Gynecology; Visit Provider Obstetrics & Gynecology
DX: O13.4 Gestational [pregnancy-induced] hypertension without significant proteinuria, complicating childbirth (principal); Z37.0 Single live birth; Z3A.37 37 weeks gestation of pregnancy
CPT/HCPCS: 59050; 82565; 82570; 84156; 84450; 84460; 84550; 85025; 85461; 85610; 85730; 86850; 86900; 86901; 87426; 90384; 99218; J7120; G0378; J2405; J2790

== ENCOUNTER → 2021-11-02 | Outpatient (CLI) | payer OTHER, SELFPAY ==
[2021-11-02 18:34] LABS: Estradiol 133.5 pg/mL; Thyroid Stim Hormone (TSH) 1.16 uIU/mL (0.358-3.74)
[2021-11-06 15:08] LABS: Testosterone, Total 22 ng/dL (13-71)
[2021-11-06 18:07] LABS: Testosterone, % Free 1.37 % (0.50-2.80)
[2021-11-06 19:28] LABS: HPV Reflexed? NOT INDICATED
== END | disposition home or self-care (01) ==
PROVIDERS: Visit Provider Obstetrics & Gynecology
DX: L68.0 Hirsutism (principal); Z12.4 Encounter for screening for malignant neoplasm of cervix
CPT/HCPCS: 36415; 82670; 84402; 84403; 84443; 88175; G0145

== ENCOUNTER → 2023-02-08 | Outpatient (CLI) | payer OTHER, SELFPAY ==
[2023-02-08 16:23] LABS: Absolute Lymphocyte Count 2.93 X10^3/uL (0.83-4.51); Absolute Neutrophil Count 7.2 X10^3/uL (2.0-7.7); Basophil# 0.03 X10^3/uL; Basophil% 0.3 % (0-1); Eosinophil# 0.09 X10^3/uL; Eosinophils% 0.8 % (0-5); Hemoglobin 13.8 g/dL (12.0-15.0); Lymphocyte # 2.93 X10^3/ul (0.83-4.51); Lymphocyte % 26.8 % (19-41); Mean Corp Hgb Conc 35.4 g/dL (32-36); Mean Corpuscular Hgb 30.3 pg (27.0-32.0); Mean Corpuscular Volume 85.7 fL (81-99); Mean Platelet Vol. 9.9 fl (6.2-12.0); Monocyte# 0.68 X10^3/uL; Monocyte% 6.2 % (0-10); NRBC Flagged by Analyzer 0 % (0-5); Neutrophil # 7.16 X10^3/uL (2.7-7.7); Neutrophil % 65.6 % (47-70); Platelet Count 223 K/mm3 (150-450); RBC Distribution Width SD 39.8 fl (35.1-43.9); Red Blood Count 4.55 M/mm3 (4.2-5.4); White Blood Count 10.9 K/mm3 (4.4-11.0)
[2023-02-08 16:45] LABS: NATERA MAILED SPECIMEN
[2023-02-08 17:24] LABS: HIV - WCH Non-Reactive (Nonreactive); Hepatitis B Surface Antigen Non-Reactive (Nonreactive); Hepatitis C Antibody Non-Reactive (Nonreactive); Rubella IgG Reactive (Nonreactive); Syphilis Antibodies Non-reactive
== END | disposition home or self-care (01) ==
PROVIDERS: Referring Provider Obstetrics & Gynecology; Visit Provider Obstetrics & Gynecology
DX: Z34.81 Encounter for supervision of other normal pregnancy, first trimester (principal)
CPT/HCPCS: 36415; 85025; 86703; 86762; 86780; 86803; 86850; 86900; 86901; 87086; 87340

== ENCOUNTER → 2023-02-14 | Outpatient (CLI) | payer OTHER, SELFPAY ==
--- NOTE | 2023-02-14 12:25 | US_ITS ---
EXAM: US , TRANSVAGINAL CLINICAL INDICATION: dating dating. LMP 12/03/2022. This corresponds with gestational age of 10 weeks, 3 days and an estimated date of delivery of 09/09/2023. TECHNIQUE: Real-time transvaginal obstetrical ultrasound of the maternal pelvis and a first trimester with image documentation. Transvaginal imaging was used for better evaluation of the fetus and adnexa. COMPARISON: No relevant prior studies available. FINDINGS: GESTATION: There is single intrauterine gestation in the uterine fundus. Mean gestational sac diameter is 4.7 cm. This corresponds with a gestational age of 10 weeks, 2 days. Ensign-rump length measures 3.3 cm. This corresponds with a gestational age of 9 weeks, 6 days. Embryonic heart rate is 138 bpm. The yolk sac measures 7 mm. Estimated gestational age 9 weeks, 6 days. MARY: Estimated date of delivery 09/13/2023. PLACENTA/AMNIOTIC FLUID: Cannot be adequately evaluated due to the early gestational age. UTERUS/CERVIX: The uterus is anteverted and measures 11.5 x 9.7 x 8.3. The cervix is closed. No myometrial mass. OVARIES: The right ovary measures 3.5 x 3.6 x 3.2 cm. There is a 2.1 cm simple appearing right ovarian cyst. No further evaluation of the cyst is necessary. The left ovary measures 2.4 x 2.3 x 2.5 cm. There is vascular flow in both ovaries. No mass. FREE FLUID: No free fluid. US/Transvaginal w/Preg US IMPRESSION: Single viable intrauterine gestation of 9 weeks, 6 days with estimated date of delivery of 09/13/2023. Electronically Signed: Cortez Burt MD at 3:31 EDT ,
== END | disposition home or self-care (01) ==
LOC: OPUS 12:23
PROVIDERS: Referring Provider Obstetrics & Gynecology; Visit Provider Obstetrics & Gynecology
DX: O09.90 Supervision of high risk pregnancy, unspecified, unspecified trimester (principal); Z3A.00 Weeks of gestation of pregnancy not specified
CPT/HCPCS: 76817

== ENCOUNTER → 2023-04-08 | Outpatient (CLI) | payer OTHER, SELFPAY ==
[2023-04-08 17:19] LABS: T4 Free Direct 0.94 ng/dL (0.76-1.46); Thyroid Stim Hormone (TSH) 0.76 uIU/mL (0.358-3.74)
== END | disposition home or self-care (01) ==
LOC: LAB 15:21
PROVIDERS: Referring Provider Obstetrics & Gynecology; Visit Provider Obstetrics & Gynecology
DX: O99.281 Endocrine, nutritional and metabolic diseases complicating pregnancy, first trimester (principal); E05.90 Thyrotoxicosis, unspecified without thyrotoxic crisis or storm; Z3A.13 13 weeks gestation of pregnancy
CPT/HCPCS: 36415; 84439; 84443

== ENCOUNTER → 2023-05-17 | Outpatient (CLI) | payer OTHER, SELFPAY ==
--- NOTE | 2023-05-17 15:27 | US_ITS ---
STUDY: SECOND AND THIRD TRIMESTER OBSTETRICAL ULTRASOUND REASON FOR EXAM: Female, 33 years old growth -- 24 weeks TECHNIQUE: Transabdominal and Transvaginal PRIOR ULTRASOUND: 02/14/2023. FINDINGS: There is a single intrauterine fetus. The fetus is in a breech presentation. There is demonstrated cardiac activity with a heart rate of 145 bpm. There is a normal amniotic fluid volume. The largest amniotic fluid pocket measures 5 cm. The amniotic fluid index (DAO) is 15 cm. The placenta is anterior and not low-lying. There are Grade 1 placental changes. The cervix measures 4.4 cm in length. The adnexal regions are not visualized. BPD: 5.8 cm = 23 weeks, 5 day(s) HC: 21.1 cm = 23 weeks, 1 day(s) AC: 19.6 cm = 24 weeks, 2 day(s) FL: 4 cm = 23 weeks, 0 day(s) EGA by ultrasound: 23 weeks 3 day(s) MARY by ultrasound: 09/10/2023 Estimated weight: 627 grams Weight percentile: 50% Limited examination of anatomy demonstrates no obvious anomalies. US/OB Limited With Biometrics IMPRESSION: Living intrauterine with estimated gestational age of 23 weeks and 3 days. EFW is 627 g which is in the 50th percentile. No obvious anomalies. Electronically Signed: Edin Tarango MD at 21:19 EST ,
== END | disposition home or self-care (01) ==
LOC: US 15:27
PROVIDERS: Referring Provider Obstetrics & Gynecology; Visit Provider Obstetrics & Gynecology
DX: Z34.92 Encounter for supervision of normal pregnancy, unspecified, second trimester (principal); Z3A.24 24 weeks gestation of pregnancy; Z14.8 Genetic carrier of other disease
CPT/HCPCS: 76816

== ENCOUNTER → 2023-06-21 | Outpatient (CLI) | payer OTHER, SELFPAY ==
[2023-06-21 15:28] LABS: Absolute Lymphocyte Count 2.54 X10^3/uL (0.83-4.51); Absolute Neutrophil Count 8.2 X10^3/uL (2.0-7.7); Basophil# 0.04 X10^3/uL; Basophil% 0.3 % (0-1); Eosinophil# 0.17 X10^3/uL; Eosinophils% 1.4 % (0-5); Hematocrit 36.1 % (37-47); Hemoglobin 12.2 g/dL (12.0-15.0); Lymphocyte # 2.54 X10^3/ul (0.83-4.51); Lymphocyte % 21.3 % (19-41); Mean Corp Hgb Conc 33.8 g/dL (32-36); Mean Corpuscular Hgb 30.5 pg (27.0-32.0); Mean Corpuscular Volume 90.3 fL (81-99); Mean Platelet Vol. 9.6 fl (6.2-12.0); Monocyte# 0.91 X10^3/uL; Monocyte% 7.6 % (0-10); NRBC Flagged by Analyzer 0 % (0-5); Neutrophil # 8.16 X10^3/uL (2.7-7.7); Neutrophil % 68.6 % (47-70); Platelet Count 188 K/mm3 (150-450); RBC Distribution Width CV 13.4 % (11.6-14.6); RBC Distribution Width SD 43.9 fl (35.1-43.9); White Blood Count 11.9 K/mm3 (4.4-11.0)
[2023-06-21 15:30] LABS: POSITIVE COUNT NO; POSITIVE DIFFERENTIAL NO; POSITIVE MORPHOLOGY NO
[2023-06-21 15:35] LABS: Glucose Challenge Gest 1H 50g 127 mg/dL (70-140)
[2023-06-21 17:28] LABS: HIV - WCH Non-Reactive (Nonreactive); Syphilis Antibodies Non-reactive
== END | disposition home or self-care (01) ==
LOC: PAVLAB 14:58
PROVIDERS: Referring Provider Obstetrics & Gynecology; Visit Provider Obstetrics & Gynecology
DX: O09.90 Supervision of high risk pregnancy, unspecified, unspecified trimester (principal); Z3A.00 Weeks of gestation of pregnancy not specified
CPT/HCPCS: 36415; 82950; 85025; 86703; 86780; 86850; 86900; 86901

== ENCOUNTER → 2023-07-18 | Outpatient (CLI) | payer OTHER, SELFPAY ==
--- NOTE | 2023-07-18 15:55 | US_ITS ---
STUDY: SECOND AND THIRD TRIMESTER OBSTETRICAL ULTRASOUND - LIMITED REASON FOR EXAM: Female, 33 years old / growth - LMP: 12/03/2022. PRIOR ULTRASOUND: None. TECHNIQUE: Transabdominal TECHNICAL QUALITY: 05/17/2023. FINDINGS: There is a single intrauterine fetus. The fetus is in a cephalic presentation. There is demonstrated cardiac activity with a heart rate of 136 bpm. There is a normal amniotic fluid volume. The largest amniotic fluid pocket measures 4.39 cm. The amniotic fluid index (DAO) is 16.9 cm. The placenta is anterior in location and is not low lying. There are Grade 1 placental changes. The cervix measures 3.1 cm cm in length. Cervix is closed. BIOMETRY: BPD: 8.08 cm: 32 weeks, 3 days HC: 31.15 cm: 34 weeks, 6 days AC: 30.1 cm: 34 weeks, 0 days FL: 6.11 cm: 31 weeks, 5 days Age by LMP: 32 weeks, 3 days. MARY by LMP: 09/09/2023. MARY by prior US: 09/10/2023. age by current US: 33 weeks, 3 days. MARY by current US: 09/02/2023. Estimated weight: 2151 grams, +/- 323 grams, 66 percentile. US/OB Limited With Biometrics IMPRESSION: Single intrauterine gestation with ultrasound age of 33 weeks and 3 days and estimated date of delivery of 09/02/2023. Vertex presentation. Anterior placenta with no previa. Normal amniotic fluid. Normal cardiac activity. Electronically Signed: Eneida Bolivar MD at 17:29 EST ,
== END | disposition home or self-care (01) ==
LOC: OPUS 15:54
PROVIDERS: Referring Provider Obstetrics & Gynecology; Visit Provider Obstetrics & Gynecology
DX: O44.40 Low lying placenta NOS or without hemorrhage, unspecified trimester (principal); Z14.8 Genetic carrier of other disease; Z3A.28 28 weeks gestation of pregnancy
CPT/HCPCS: 76816

== ENCOUNTER 2023-08-01 16:50 | Outpatient (CLI) | payer OTHER, SELFPAY ==
[2023-08-01] VITALS (89 sets, daily range): BP systolic 103–178; BP diastolic 54–87; PULSE 85–117; RESP 16–18; TEMP 36.1–37; O2SAT 93–100; BMI 30.3
--- NOTE | 2023-08-01 17:18 | NURSING ---
Was seen in office and sent to for BP evaluation.
[2023-08-01] MEDS: Acetaminophen 500 MG Tablet 1000 MG PO (17:37)
--- NOTE | 2023-08-01 18:14 | HP.PCM.OB_ITS ---
HPI - General HPI Narrative EUGENIA ASTUDILLO, is a 33 y/o @ 34 weeks 3 days who presents to L&D from the office due to complaint of moderate persistent headache and elevated bp at home of 160's/90's. 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 PIH labs were ordered in the office and were all normal. Her prot:cr was too low to report. Dr. Dozier from [facility] was consulted and recommendations were to start magnesium sulfate anyway and give steriods, observe, and reassess in the morning. The patient also reports visual changes described as bright flashing lights. Maternal Data Information MARY Calculator Estimated Delivery Date Method Current WG Current Estimate 09/09/23 LMP (Certain) 34w 3d Other Estimates 09/09/23 Ultrasound #1 34w 3d PFSH PFSH Home Medications PNV-iron 29 mg-folic acid 1 [id number]-[id number] 200 mg oral combo pack 1 pkg PO 01/27/23 [History Last Taken 07/31/23 20:00 1 pkg] Allergy/AdvReac Type Severity Reaction Status Date / Time No Known Allergies Allergy Verified 08/01/23 17:07 Family History Father Heart disease Hypertension Brother CVA (cerebral vascular accident) Brother No problems noted. Grandfather CVA (cerebral vascular accident) Grandmother Hypothyroidism Surgical History History of placement of ear tubes Hx of LASIK S/P ACL surgery Social History adopted: No household members: family number of children: 2 current occupational status: employed current occupation: [employer] pets and animals: Yes pets and animals: dog(s) history of recent travel: Yes out of state: Yes sexually active: Yes Smoking Status: Never smoker alcohol intake: never substance use type: does not use caffeine: No what type of physical activity do you participate in: other details: cardio and additional frequency: 3-4 times per week seatbelt use: always do you feel safe at home: Yes additional social history: Spouse Yusuf History 3 Elective abortions Hx Para 2 Spontaneous abortions Hx # Term Pregnancies 2 Ectopic pregnancies Hx # Pregnancies Multiple births # of living children 2 Past Pregnancies Del. Date Name GA/Weeks Outcome Route Bth Weight Gen Labor Lgth Anesthesia Del Locatn Provider FOB 03/06/18 Edgar 40 live - full term Female epi dural [facility] DEREK 09/02/20 Nguyen 37 live - full term Female epidu ral [facility] SM Delivery Date: 03/06/18 Last Updated by: Eileen Taylor Meconium Delivery Date: 09/02/20 Last Updated by: Eileen Taylor IoL GHTN Visit Details Expected Delivery Route/Plan Labor Preferences- CB/BF classes: [] labor support person: [] labor intervention preferences: [] pain management options preferred: [] cut cord/dad catch: [] : [] PP control planned: [] discussed possible routes of delivery and associated risks: [] special requests: [] Plans Covid status: declined Flu vaccine: given Tdap vaccine: given Rhogam: given LARC form signed: movement and labor precautions reviewed. Problem list reviewed and updated with the most current plan of care details and appropriate orders placed. Relevant counseling for the gestational age provided. Continue routine care and follow up unless otherwise noted in visit notes/problem list details OB Flowsheet Initial Weight: Not Recorded Date -?-?-?-?-?-?-?-?-?-?-?-?- EGA Weight BP Urine Prot -?-?-?-?-?-?-?-?-?-?-?-?- Glucose FHR FuHt Pres Dilation -?-?-?-?-?-?-?-?-?-?-?-?- Effaced St Visit Note 02/08/23 -?-?-?-?-?-?-?-?-?-?-?-?- 9w 4d 174 lb 6 oz 136/82 -?-?-?-?-?-?-?-?-?-?-?-?- -?-?-?-?-?-?-?-?-?-?-?-?- JV- CRL measured 28.3 cm = 9 weeks 4 days and this is consistent with LMP. wants NIPT. 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 03/10/23 -?-?-?-?-?-?-?-?-?-?-?-?- 13w 6d 174 lb 2 oz 118/76 Nega tive -?-?-?-?-?-?-?-?-?-?-?-?- Negative 156 -?-?-?-?-?-?-?-?-?-?-?-?- JV- nipt reviewe d today- it was abnormal but low fraction and patient carries the known deletion. She does not want to repeat the test. plan for mfm us at 18 weeks. compazine ordered for persistent nausea. consulting Dr. Kelly for abnormal thyroid level in detected in pcp office. 04/08/23 -?-?-?-?-?-?-?-?-?-?-?-?- 18w 0d 176 lb 4 oz 122/74 Nega tive -?-?-?-?-?-?-?-?-?-?-?-?- Negative 150 -?--?-?-?-?-?-?-?-?-?-?-?- SM- no vb lof go od fm discussed genetic findings, seeing mfm for anatomy scan and to decide if any invasive testing desired 05/02/23 -?-?-?-?-?-?-?-?-?-?-?-?- 21w 3d 181 lb 6 oz 122/70 Nega tive -?-?-?-?-?-?-?-?-?-?-?-?- Negative 150 -?-?-?-?-?-?-?-?-?-?-?-?- SM- no vb lof go od fm no regular ctx discussed placenta 05/30/23 -?-?-?-?-?-?-?-?-?-?-?-?- 25w 3d 187 lb 136/80 Negative -?-?-?-?-?-?-?-?-?-?-?-?- Negative 140 -?-?-?-?-?-?--?-?-?-?-?-?- JV- no lof, vagi nal bleeding, or dec fm. has a head cold. neg for covid. rec OTC remedies. 06/21/23 -?-?-?-?-?-?-?-?-?-?-?-?- 28w 4d 192 lb 6 oz 134/79 Nega tive -?-?-?-?-?-?-?-?-?-?-?-?- Negative 145 28 -?-?-?-?-?-?-?-?-?-?-?-?- SM- no vb lof go od fm no regular ctx 07/06/23 -?-?-?--?-?-?-?-?-?-?-?-?- 30w 5d 195 lb 2 oz 124/78 Nega tive -?-?-?-?-?-?-?-?-?-?-?-?- Negative 145 30 Cephalic -?-?-?-?-?-?-?-?-?-?-?-?- JV- no complaint s today. wants pp tubal (remote from delivery)+ fm 07/18/23 -?-?-?-?-?-?-?-?-?-?-?-?- 32w 3d 200 lb 118/70 Negative -?-?-?-?-?-?-?-?-?-?-?-?- Negative 145 32 -?-?-?-?-?-?-?-?-?-?-?-?- SM- no vb lof go od fm no regular ctx 08/01/23 -?-?-?-?-?-?-?-?-?-?-?-?- 34w 3d 202 lb 6 oz 110/70 Nega tive -?-?-?-?-?-?-?-?-?-?-?-?- Negative 148 34 -?-?-?-?-?-?-?-?-?-?-?-?- MH-No VB, LOF. G ood FM. Headache today and last 3 days. Vision changes also and BP elevated on home monitor but did not call. BP ok today but headache persists, URQ pain but states under ribs and more like numbness. Pre E labs pending and will review management w Dr Grover ZAIDI Constitutional Constitutional: Denies change in weight, fatigue, fever(s), headache(s), poor appetite or weakness ENT HEENT: Denies dizziness, headache(s), loss taste/smell or sore throat Cardiovascular Cardiovascular: Denies chest pain, dizziness, dyspnea, irregular heart rhythm, leg edema, palpitations, rapid heart rate or vomiting Respiratory/Chest Respiratory/Chest: Denies chest tightness, cough, dyspnea or breast pain Gastrointestinal Gastrointestinal: Denies abdominal pain, anorexia, constipation, cramping, diarrhea, hemorrhoids, vomiting or weight changes Genitourinary Genitourinary: Denies dysuria, flank pain, genital lesions, genital pain, urinary frequency or urinary urgency Musculoskeletal Musculoskeletal: Denies back pain, difficulty walking, joint pain, limited range of motion, muscle cramps or numbness Integumentary Integumentary: Denies lesions or unusual bruising Neurologic Neurologic: Denies abnormal movements, abnormal speech, dizziness, numbness, seizure-like activity or syncope Psychiatric Psychiatric: Denies anxiety, behavioral changes, change in appetite, change in libido, cognitive impairment, confusion, depression, difficulty concentrating, hallucinations or suicidal thoughts Endocrine Endocrinology: Denies excessive sweating, polydipsia or polyuria Hematologic/Lymphatic Hematologic/Lymphatic: Denies easy bleeding, easy bruising or lymphadenopathy Allergic/Immunologic Allergic/Immunologic: Denies itchy eyes, lip swelling, seasonal rhinorrhea, rhinitis, throat swelling, tongue swelling, eczemia, wheezing or asthma Vital Signs Vital Signs Vital Signs: 08/01/23 17:03 08/01/23 17:11 08/01/23 17:11 Temperature 98.6 F Pulse Rate 85 Blood Pressure 145/80 H BP Systolic 145 BP Diastolic 80 08/01/23 17:21 08/01/23 17:21 08/01/23 17:31 Temperature Pulse Rate 85 Blood Pressure 142/76 H 142/84 H BP Systolic 142 142 BP Diastolic 76 84 08/01/23 17:31 08/01/23 17:40 08/01/23 17:40 Temperature Pulse Rate 87 97 Blood Pressure 151/87 H BP Systolic 151 BP Diastolic 87 08/01/23 17:50 08/01/23 17:50 08/01/23 18:00 Temperature Pulse Rate 91 Blood Pressure 157/85 H 178/87 H BP Systolic 157 178 BP Diastolic 85 87 08/01/23 18:00 Temperature Pulse Rate 94 Blood Pressure BP Systolic BP Diastolic Weight Weight: 199 lb 8.293 oz Body Mass Index (BMI) 30.3 Physical Exam Const alert, oriented x3, no apparent distress and healthy appearing General Appearance: cooperative; Negative for anxious HEENT normocephalic Face and Sinus: normal facial exam Eyes EOMs intact bilaterally and no scleral icterus General Eye: normal appearance of both eyes Neck full ROM and supple Lymph Lymphatic: no lymphadenopathy noted Chest Chest: abnormal inspection of the chest Resp normal respiratory effort Effort and Inspection: able to speak in complete sentences Cardio regular rate GI soft to palpation and non-tender Inspection: gravid Palpation: soft; Negative for tender external exam normal Amniotic Fluid: ROM+plus Back/Spine no CVA tenderness Extremity normal to inspection, full ROM and no clubbing, cyanosis or edema General Extremity: Negative for calf tenderness or edema Skin Lesions: no lesions Rashes: no rashes Psych mental status grossly normal Labs Labs Labs: Blood Type O NEGATIVE Antibody Screen NEGATIVE Hct 38.3 % (37-47) Hgb 12.8 g/dL (12.0-15.0) Pap Smear Negative Obstetrics Ultrasound Syphilis Total Ab Non-reactive Rubella IgG Antibody Reactive (Nonreactive) Hep Bs Antigen Non-Reactive (Nonreactive) Hepatitis C Antibody Non-Reactive (Nonreactive) HIV 1&2 Antibody Non-Reactive (Nonreactive) Glucose 1 Hr 50 gm 127 mg/dL (70-140) Group B Strep DNA Negative (Negative) Rhogam given: Yes Miscellaneous Test Assessment & Plan (1) Elevated blood pressure affecting in third trimester, antepartum: COMMENT: Pre E labs pending. Elevated on home monitor. +headache. To WP for further monitoring (2) Rh negative state in antepartum period: COMMENT: RhoGAM at 28 weeks or as needed for bleeding, Rhogam given 06/21/23. 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 05/17 24WK 50% 32w:66% (4) : QUALIFIERS: Weeks of gestation: 32 weeks Qualified Code(s): Z3A.32 - 32 weeks gestation of COMMENT: DOC ONLY. discussed NIPT.- not enough fraction. pt declines rpt. she carries a known deletion. (5) Supervision of high risk , antepartum: COMMENT: PRR MARY 09/09/23 girl PC Nguyen Hernández, Spouse Yusuf PLAN: Plan 1. plan to start magnesium sulfate 6 gram bolus followed by 2 grams per hour 2. 12.5 mg celestone IM 3. continuous monitoring 4. BPP in am 5. pt is upset about this plan and while telling her her bp went up to 178/80's. Will step out and repeat her pressure before giving antihypertensive medication 6. tylenol now for headache 7. plan to collect a 24 hr urine
[2023-08-01] MEDS: Betamethasone/Betamethasone 30 MG/5 ML Vial 12 MG IM (18:31)
[2023-08-01] MEDS: Lactated Ringers 1,000 ML 25 ML IV (18:35)
[2023-08-01] MEDS: Magnesium Sulfate 4gm/100mL 4 GM/100 ML IV.SOLN. IV (18:48)
[2023-08-01] MEDS: Magnesium Sulfate 4gm/100mL 2 GM/50 ML IV.SOLN. IV (19:10)
[2023-08-01] MEDS: Magnesium Sulfate 20 GM/500 ML BAG IV (19:22)
[2023-08-01 19:32] LABS: LDH 172 U/L (84-246)
[2023-08-01 19:50] LABS: Syphilis Antibodies Non-reactive
[2023-08-01] MEDS: DiphenhydrAMINE 25 MG Capsule 50 MG PO (22:08)
[2023-08-02] VITALS (131 sets, daily range): BP systolic 105–143; BP diastolic 55–83; PULSE 82–118; RESP 16–18; TEMP 36.9; O2SAT 93–99
[2023-08-02] MEDS: Magnesium Sulfate 20 GM/500 ML BAG IV (04:52)
[2023-08-02 07:53] LABS: Absolute Lymphocyte Count 1.75 X10^3/uL (0.83-4.51); Absolute Neutrophil Count 11.4 X10^3/uL (2.0-7.7); Basophil# 0.03 X10^3/uL; Basophil% 0.2 % (0-1); Hematocrit 37.3 % (37-47); Hemoglobin 12.6 g/dL (12.0-15.0); Lymphocyte # 1.75 X10^3/ul (0.83-4.51); Lymphocyte % 12.7 % (19-41); Mean Corp Hgb Conc 33.8 g/dL (32-36); Mean Corpuscular Hgb 29.9 pg (27.0-32.0); Mean Corpuscular Volume 88.4 fL (81-99); Mean Platelet Vol. 9.9 fl (6.2-12.0); Monocyte# 0.52 X10^3/uL; Monocyte% 3.8 % (0-10); NRBC Flagged by Analyzer 0 % (0-5); Neutrophil % 82.7 % (47-70); Platelet Count 202 K/mm3 (150-450); RBC Distribution Width CV 13.9 % (11.6-14.6); RBC Distribution Width SD 44.5 fl (35.1-43.9); Red Blood Count 4.22 M/mm3 (4.2-5.4); White Blood Count 13.8 K/mm3 (4.4-11.0)
--- NOTE | 2023-08-02 08:00 | US_ITS ---
INDICATION: pre-eclampsia/DAO EXAMINATION: Ultrasound US Biophysical Profile W/O Nonst TECHNIQUE: Transabdominal pelvic ultrasound was performed. COMPARISON: OB ultrasound July 18, 2023 FINDINGS: A single live intrauterine is identified in cephalic presentation. heart rate is 133 bpm. Amniotic fluid index is 19.3 cm. The placenta is anterior. BIOPHYSICAL PROFILE (BPP): 02/15 -- Breathin/2. -- Movement: 2/2. -- Tone: 2/2. --DAO: 2/2. US/Biophysical Prof W/O Non Stres IMPRESSION: Biophysical profile score of 8 out of 8. Electronically Signed: Gal Leon MD at 7:48 EST ,
[2023-08-02 08:14] LABS: ALB/GLOB Ratio 0.9 RATIO (0.9-2.4); AST(SGOT) 15 U/L (15-37); Alanine Aminotransfer ALT/SGPT 17 U/L (13-56); Albumin, Serum 3.1 g/dL (3.2-5.0); Alkaline Phosphatase 77 U/L (45-117); Anion Gap 8 (5-15); BUN 7 mg/dL (7-18); BUN/Creat Ratio 14.7 RATIO (10-20); Calcium,Total 7.9 mg/dL (8.5-10.1); Chloride 108 mmol/L (98-107); Creatinine, Serum 0.48 mg/dL (0.55-1.02); EST Glomerular Filtration Rate 161 mL/min (>60); Est Glom Filt Rate - Afr Amer 195 mL/min (>60); Estimated Creatinine Clearance 199.83 ml/min; Globulin 3.5 g/dL (2.2-4.2); Glucose 108 mg/dL (74-106); LDH 144 U/L (84-246); Potassium 3.7 mmol/L (3.5-5.1); Protein, Total 6.6 g/dL (6.4-8.2); Sodium Level 136 mmol/L (136-145); Uric Acid 4.5 mg/dL (2.6-6.0)
--- NOTE | 2023-08-02 17:20 | OB.TRI.HP_ITS ---
HPI - General HPI Narrative EUGENIA ASTUDILLO, is a 33 F who presents for monitoring overnight due to headache and elevated blood pressures over the weekend. Headache resolved with Tylenol lasted visual changes. Patient has been on magnesium sulfate overnight and had normal to only 1 mildly elevated blood pressure. Denies any visual changes now no vaginal bleeding or loss of fluid admits good movement. Maternal Data Information MARY Calculator Estimated Delivery Date Method Current WG Current Estimate 09/09/23 LMP (Certain) 34w 4d Other Estimates 09/09/23 Ultrasound #1 34w 4d PFSH PFSH Home Medications PNV-iron 29 mg-folic acid 1 mb-snaky-4-dha 200 mg oral combo pack 1 pkg PO 01/27/23 [History Last Taken 07/31/23 20:00 1 pkg] Allergy/AdvReac Type Severity Reaction Status Date / Time No Known Allergies Allergy Verified 08/01/23 17:07 Family History Father Heart disease Hypertension Brother CVA (cerebral vascular accident) Brother No problems noted. Grandfather CVA (cerebral vascular accident) Grandmother Hypothyroidism Surgical History History of placement of ear tubes Hx of LASIK S/P ACL surgery Social History adopted: No household members: family number of children: 2 current occupational status: employed current occupation: [email or web address] pets and animals: Yes pets and animals: dog(s) history of recent travel: Yes out of state: Yes sexually active: Yes Smoking Status: Never smoker alcohol intake: never substance use type: does not use caffeine: No what type of physical activity do you participate in: other details: cardio and additional frequency: 3-4 times per week seatbelt use: always do you feel safe at home: Yes additional social history: Spouse Yusuf History 3 Elective abortions Hx Para 2 Spontaneous abortions Hx # Term Pregnancies 2 Ectopic pregnancies Hx # Pregnancies Multiple births # of living children 2 Past Pregnancies Del. Date Name GA/Weeks Outcome Route Bth Weight Infant Gen Labor Lgth Anesthesia Del Locatn Provider FOB 03/06/18 Edgar 40 live - full term Female epi dural [facility] DEREK 09/02/20 Nguyen 37 live - full term Female epidu ral [facility] SM Delivery Date: 03/06/18 Last Updated by: Eileen Taylor Meconium Delivery Date: 09/02/20 Last Updated by: Eileen Taylor IoL GHTN Visit Details Expected Delivery Route/Plan Labor Preferences- CB/BF classes: [] labor support person: [] labor intervention preferences: [] pain management options preferred: [] cut cord/dad catch: [] : [] PP control planned: [] discussed possible routes of delivery and associated risks: [] special requests: [] Plans Covid status: declined Flu vaccine: given Tdap vaccine: given Rhogam: given LARC form signed: movement and labor precautions reviewed. Problem list reviewed and updated with the most current plan of care details and appropriate orders placed. Relevant counseling for the gestational age provided. Continue routine care and follow up unless otherwise noted in visit notes/problem list details OB Flowsheet Initial Weight: Not Recorded Date -?-?-?-?-?-?-?-?-?-?-?-?- EGA Weight BP Urine Prot -?-?-?-?-?-?-?-?-?-?-?-?- Glucose FHR FuHt Pres Dilation -?-?-?-?-?-?-?-?-?-?-?-?- Effaced St Visit Note 02/08/23 -?-?-?-?-?-?-?-?-?-?-?-?- 9w 4d 174 lb 6 oz 136/82 -?-?-?-?-?-?-?-?-?-?-?-?- -?-?-?-?-?-?-?-?-?-?-?-?- JV- CRL measured 28.3 cm = 9 weeks 4 days and this is consistent with LMP. wants NIPT. 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 03/10/23 -?-?-?-?-?-?-?-?-?-?-?-?- 13w 6d 174 lb 2 oz 118/76 Nega tive -?-?-?-?-?-?-?-?-?-?-?-?- Negative 156 -?-?-?-?-?-?-?-?-?-?-?-?- JV- nipt reviewe d today- it was abnormal but low fraction and patient carries the known deletion. She does not want to repeat the test. plan for mfm us at 18 weeks. compazine ordered for persistent nausea. consulting Dr. Kelly for abnormal thyroid level in detected in pcp office. 04/08/23 -?-?-?-?-?-?-?-?-?-?-?-?- 18w 0d 176 lb 4 oz 122/74 Nega tive -?-?-?-?--?-?-?-?-?-?-?-?- Negative 150 -?-?-?-?-?-?-?-?-?-?-?-?- SM- no vb lof go od fm discussed genetic findings, seeing mfm for anatomy scan and to decide if any invasive testing desired 05/02/23 -?-?-?-?-?-?-?-?-?-?-?-?- 21w 3d 181 lb 6 oz 122/70 Nega tive -?-?-?-?-?-?-?-?-?-?-?-?- Negative 150 -?-?-?-?--?-?-?-?-?-?-?-?- SM- no vb lof go od fm no regular ctx discussed placenta 05/30/23 -?-?-?-?-?-?-?-?-?-?-?-?- 25w 3d 187 lb 136/80 Negative -?-?-?-?-?-?-?-?-?--?-?-?- Negative 140 -?-?-?-?-?-?-?-?-?-?-?-?- JV- no lof, vagi nal bleeding, or dec fm. has a head cold. neg for covid. rec OTC remedies. 06/21/23 -?-?-?-?-?-?-?-?-?-?-?-?- 28w 4d 192 lb 6 oz 134/79 Nega tive -?-?-?-?-?-?-?-?-?-?-?-?- Negative 145 28 -?-?-?-?-?-?-?-?-?-?-?-?- SM- no vb lof go od fm no regular ctx 07/06/23 -?-?-?-?-?-?-?-?-?-?-?-?- 30w 5d 195 lb 2 oz 124/78 Nega tive -?-?-?-?-?-?-?-?-?-?-?-?- Negative 145 30 Cephalic -?-?-?-?-?-?-?-?-?-?-?-?- JV- no complaint s today. wants pp tubal (remote from delivery)+ fm 07/18/23 -?-?-?-?-?-?-?-?-?-?-?-?- 32w 3d 200 lb 118/70 Negative -?-?-?-?-?-?-?-?-?-?-?-?- Negative 145 32 -?-?-?-?-?-?-?-?-?-?-?-?- SM- no vb lof go od fm no regular ctx 08/01/23 -?-?-?-?-?-?--?-?-?-?-?-?- 34w 3d 202 lb 6 oz 110/70 Nega tive -?-?-?-?-?-?-?-?-?-?-?-?- Negative 148 34 -?-?-?-?-?-?-?-?-?-?-?-?- MH-No VB, LOF. G ood FM. Headache today and last 3 days. Vision changes also and BP elevated on home monitor but did not call. BP ok today but headache persists, URQ pain but states under ribs and more like numbness. Pre E labs pending and will review management w Dr Ness Physical Exam Const alert, oriented x3 and no apparent distress HEENT Head and Scalp: normocephalic and atraumatic Eyes EOMs intact bilaterally Neck full ROM and no lymphadenopathy Chest inspection of chest normal Resp normal respiratory effort GI GI Narrative: gravid, abdomen nontender, AGA Neuro no focal motor deficits Motor Exam: clonus absent NST FHR Rate Baby A Baseline: 140 Variability:: Moderate Accelerations:: 15 x 15 Decelerations:: None NST Reactive:: Yes FHR Category:: Category I Uterine Activity:: no regular Assessment & Plan (1) Rh negative state in antepartum period: COMMENT: RhoGAM at 28 weeks or as needed for bleeding, Rhogam given 06/21/23. 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 05/17 24WK 50% 32w:66% (3) : QUALIFIERS: Weeks of gestation: 32 weeks Qualified Code(s): Z3A.32 - 32 weeks gestation of COMMENT: DOC ONLY. discussed NIPT.- not enough fraction. pt declines rpt. she carries a known deletion. (4) Supervision of high risk , antepartum: COMMENT: PRR MARY 09/09/23 girl PC Nguyen Hernández, Spouse Yusuf (5) Gestational hypertension: COMMENT: admitted STO 08/01 given celestone x 2. monitored and labs WNL, VALENCIA resolved, normal to mildly elevated bp. discussed with MFM, monitor with twice weekly NSTs and weekly labs, deliver at 37 weeks or sooner if severe range pressure or neurologic symptoms. PLAN: Plan see a/p comments monitor through day and magnesium will be turned off this am and dc home after second celestone if bps nromal and patient is asymptomatic Charges/Coding Procedures Urinary/Genital 52xxx-59xxx: [id number] non-stress test Interp
[2023-08-02] MEDS: Betamethasone/Betamethasone 30 MG/5 ML Vial 12 MG IM (18:02)
[2023-08-02 19:09] LABS: 24HR. Urine Creatinine 1.67 g/24 HR (0.70-1.90)
[2023-08-02 20:24] LABS: Creat.Clear Total Volume 3000 mL; Creatinine Clearance 248 ml/min (100-200); Creatinine Serum Creat 0.5 mg/dL (0.6-1.0); Creatinine Urine 57.1 mg/dL (NO RANGE EST.); EST Glomerular Filtration Rate 160 mL/min (>60); Est Glom Filt Rate - Afr Amer 194 mL/min (>60)
[2023-08-02 20:26] LABS: ALB/GLOB Ratio 0.9 RATIO (0.9-2.4); CPK Total, Creatine Kinase 52 U/L (26-192); Globulin 3.4 g/dL (2.2-4.2); Protein, Total 6.6 g/dL (6.4-8.2)
[2023-08-02 21:37] LABS: 24HR. UA Prot. Total Volume 3000 mL; Urine Protein (24 Hour) 9.7 mg/dL (<11.9)
== END 2023-08-02 18:09 | disposition home or self-care (01) ==
LOC: WPOUT 16:54 → WP 16:55
PROVIDERS: Advanced Practice Midwife; Obstetrics & Gynecology; Referring Provider Registered Nurse; Visit Provider Registered Nurse
DX: O99.891 Other specified diseases and conditions complicating pregnancy (principal); Z3A.34 34 weeks gestation of pregnancy; R51.9 Headache, unspecified; R03.0 Elevated blood-pressure reading, without diagnosis of hypertension
CPT/HCPCS: 96365; 96366 ×2; 96375; 36415; 59025; 59050; 76819; 80053; 82550; 82570; 82575; 83615; 84156; 84550; 85025; 86780; 86850; 86870; 86900; 86901; 87491; 87591; 96372; 99221; J7120; G0378; J0702

== ENCOUNTER → 2023-08-01 | Outpatient (CLI) | payer OTHER, SELFPAY ==
[2023-08-01 15:59] LABS: Absolute Lymphocyte Count 2.38 X10^3/uL (0.83-4.51); Absolute Neutrophil Count 7.4 X10^3/uL (2.0-7.7); Basophil# 0.03 X10^3/uL; Basophil% 0.3 % (0-1); Eosinophil# 0.11 X10^3/uL; Hematocrit 38.3 % (37-47); Hemoglobin 12.8 g/dL (12.0-15.0); Lymphocyte # 2.38 X10^3/ul (0.83-4.51); Lymphocyte % 21.9 % (19-41); Mean Corp Hgb Conc 33.4 g/dL (32-36); Mean Corpuscular Hgb 30.1 pg (27.0-32.0); Mean Corpuscular Volume 90.1 fL (81-99); Mean Platelet Vol. 9.8 fl (6.2-12.0); Monocyte# 0.87 X10^3/uL; NRBC Flagged by Analyzer 0 % (0-5); Neutrophil # 7.38 X10^3/uL (2.7-7.7); Neutrophil % 68.1 % (47-70); Platelet Count 194 K/mm3 (150-450); RBC Distribution Width CV 14.1 % (11.6-14.6); RBC Distribution Width SD 45.3 fl (35.1-43.9); Red Blood Count 4.25 M/mm3 (4.2-5.4); White Blood Count 10.9 K/mm3 (4.4-11.0)
[2023-08-01 16:12] LABS: ALB/GLOB Ratio 0.9 RATIO (0.9-2.4); AST(SGOT) 16 U/L (15-37); Alanine Aminotransfer ALT/SGPT 18 U/L (13-56); Alkaline Phosphatase 80 U/L (45-117); Anion Gap 6 (5-15); BUN 8 mg/dL (7-18); BUN/Creat Ratio 12.6 RATIO (10-20); Calcium,Total 9.3 mg/dL (8.5-10.1); Chloride 106 mmol/L (98-107); Creatinine, Serum 0.63 mg/dL (0.55-1.02); EST Glomerular Filtration Rate 116 mL/min (>60); Est Glom Filt Rate - Afr Amer 140 mL/min (>60); Globulin 3.4 g/dL (2.2-4.2); Glucose 87 mg/dL (74-106); Potassium 3.7 mmol/L (3.5-5.1); Protein, Total 6.4 g/dL (6.4-8.2); Sodium Level 139 mmol/L (136-145)
--- OUTSIDE RECORDS SUMMARY | 2023-08-01 16:14 | XMS RPT_ITS | CCD ---
Author Name Unknown Address [address] [place] [address] Organization [facility] Care Team Providers Care Personal Financial Planner Name Role Phone UMER DE JESUS NP Attending Unavailable UMER DE JESUS NP Consulting Unavailable UMER DE JESUS NP Primary Care Unavailable UMER DE JESUS HUMAN RESOURCES CLERK Admitting Unavailable PROVIDER, UNKNOWN Consulting Unavailable CHARLEE ROBISON Referring Unavailab CHARLEE Hutchinson Attending Unavailab BRIANNE Farrell Primary Care Unavailabl e WOOD DO~[id number], WOOD ANUPAMA A Admitting Unavailable WOOD DO~[id number], WOOD ANUPAMA A Attending Unavailable JAY PERERA MD, V Consulting Unavailable TJ DAVID~[id number], TJ THOMPSON Primary Care Unavailable JAY PERERA MD, V Consulting Unavailable TJ DAVID, JAY Consulting Unavailable TJ DAVID, JAY Consulting Unavailable WOOD DO, ANUPAMA A Consulting Unavailable WOOD DO, ANUPAMA A Consulting Unavailable DOUP TECHNICAL EDITOR~[id number], DOUP ITZ R Admitting Unavailable DOUP TECHNICAL EDITOR~[id number], DOUP ITZ R Attending Unavailable NONE, NONE Primary Care Unavailable DOUP TECHNICAL EDITOR, ITZ R Consulting Unavailable DOUP TECHNICAL EDITOR, ITZ R Consulting Unavailable NONE, NONE Consulting Unavailable DECLINED, Consulting Unavailable MOHAMUD RIVERO MD Consulting Unavailable NONE, NONE Primary Care Unavailable BLAS COE Admitting Unavailable BLAS COE Attending Unavailable MOHAMUD RIVERO MD Consulting Unavailable BLAS COE Consulting Unavailable BLAS COE Consulting Unavailable NONE, NONE Consulting Unavailable DR MAURICIO Consulting Unavailable Allergies Allergy Classification Reported Allergen(s) Allergy Type Date of Onset Reaction(s) Facility (1 source) Acetaminophen / HYDROcodone Drug Allergy [facility] Repository Problems Active Problems Problem Classification Problem Date Documented Da te Episodic/Chronic Genitourinary symptoms and ill-defined conditions (3 sources) Frequency of micturition; Translations: [FREQUENCY OF MICTURITION] Onset: 06-05-2023 Episodic Malaise and fatigue (1 source) Other fatigue; Translations: [Other fatigue] Onset: 02-04-2022 Episodic Thyroid disorders (1 source) Nontoxic goiter, unspecified; Translations: [NONTOXIC GOITER UNSPECIFIED] Onset: 03-08-2023 Chronic Past or Other Problems Problem Classification Problem Date Documented Da te Episodic/Chronic Other screening for suspected conditions (not mental disorders or infectious disease) (2 sources) Other specified abnormal findings of blood chemistry; Translations: [OTH SPEC ABNORMAL FINDINGS BLD CHEM] Onset: 03-04-2023 Episodic Other skin disorders (2 sources) Localized swelling, mass and lump, unspecified; Translations: [LOCALIZED SWELLING MASS AND LUMP UNS] Onset: 11-11-2022 Episodic Skin and subcutaneous tissue infections (1 source) Periorbital cellulitis; Translations: [PERIORBITAL CELLULITIS] Onset: 11-15-2022 Episodic Results Test Name Value Interpretation Reference Range Facil ity Encounters Encounter Date Encounter Type Care Provider Facility Start: 06-05-2023 End: 06-05-2023 ambulatory BENI BAZAN TECHNICAL EDITOR~[id number] Facility:[facility] Start: 04-14-2023 End: 04-14-2023 ambulatory CHARLEE ROBISON [facility] Start: 03-04-2023 End: 03-05-2023 ambulatory MOHAMUD RIVERO MD Facility:[facility] Start: 11-11-2022 End: 11-12-2022 ambulatory WILSON RACHEL DO~[id number] Facility:[facility] Start: 02-04-2022 End: 02-04-2022 ambulatory UMER Santiago [facility] Payers Date Payer Category Payer Unknown [id number] [id number] [id number] 1992 Unknown [id number] 1992 Unknown [id number] 2.16.8 [id number] 1992 Unknown [id number] 2.16.8 [id number] 1992 Unknown [id number] 2.16.8 [id number] 1959 Unknown [id number] 1959 Unknown [id number] Clinical Note 03-04-2023 Note Date & Type Note Facility 03-04-2023 Note PROCEDURE: ULTRASOUN D THYROID, 03/04/2023 3:52 PM EDT CLINICAL INDICATIONS: Abnormal thyroid function test, TSH. COMPARISON: None TECHNIQUE: Thyroid sonogram, grayscale, color assessment. FINDINGS: Right lobe: 5.0 x 1.9 x 2.2 cm Left lobe: 4.5 x 1.4 x 1.8 cm Isthmus: 0.8 cm. There is mild right lobe thyroid enlargement. Homogeneous echo pattern is seen. Vascularity normal. No discrete thyroid nodule is evident. Regional soft tissues normal. IMPRESSION: 1. Mild right lobe thyroid enlargement, homogeneous echo pattern, normal vascularity. 2. No thyroid nodule. [facility] Summary Purpose Family History No Family History Records FoundNo Family History Records FoundNo Family History Records Found Advance Directives No Advanced Directives Records FoundNo Advanced Directives Records FoundNo Advanced Directives Records Found Additional Source Comments INFORMATION SOURCE (unrecogn ized section and content) DATE CREATED AUTHOR AUTHOR'S ORGANIZ ATION 04/17/2023 [facility] DATE CREATED AUTHOR AUTHOR'S ORGANIZ ATION 06/10/2023 [facility] FOR RECORDS PERTAINING TO PATIENTS WHO ARE OR HAVE BEEN ENROLLED IN A CHEMICAL DEPENDENCY/SUBSTANCEABUSE PROGRAM, SOME INFORMATION MAY BE OMITTED. This clinical summary was aggregated from multiple sources. Caution should be exercised in using it in the provision of clinical care. This summary normalizes information from multiple sources, and as a consequence, information in this document may materially change the coding, format and clinical context of patient data. In addition, data may be omitted in some cases. CLINICAL DECISIONS SHOULD BE BASED ON THE PRIMARY CLINICAL RECORDS. [facility]. provides no warranty or guarantee of the accuracy or completeness of information in this document.
[2023-08-01 16:49] LABS: Protein, Urine (Random) < 6.0 mg/dL (<11.9)
== END | disposition home or self-care (01) ==
LOC: PAVLAB 15:40
PROVIDERS: Registered Nurse; Referring Provider Nurse Practitioner Women's Health; Visit Provider Nurse Practitioner Women's Health
DX: Z34.90 Encounter for supervision of normal pregnancy, unspecified, unspecified trimester (principal); Z3A.00 Weeks of gestation of pregnancy not specified
CPT/HCPCS: 36415; 80053; 82570; 84156; 85025

== ENCOUNTER → 2023-08-09 | Outpatient (CLI) | payer OTHER, SELFPAY ==
--- OUTSIDE RECORDS SUMMARY | 2023-08-09 17:33 | XMS RPT_ITS | CCD ---
Author Name Unknown Address [address] [place] [address] Organization [facility] Care Team Providers Care Tierce Filler Name Role Phone UMER DE JESUS NP Attending Unavailable UMER DE JESUS NP Consulting Unavailable UMER DE JESUS NP Primary Care Unavailable UMER DE JESUS BOTTOMING MACHINE OPERATOR Admitting Unavailable PROVIDER, UNKNOWN Consulting Unavailable CHARLEE ROBISON Referring Unavailab CHARLEE Hutchinson Attending Unavailab BRIANNE Farrell Primary Care Unavailabl e WOOD DO~[id number], WOOD ANUPAMA A Admitting Unavailable WOOD DO~[id number], WOOD ANUPAMA A Attending Unavailable JAY PERERA MD, V Consulting Unavailable TJ DAVID~[id number], TJ THOMPSON Primary Care Unavailable JAY PERERA MD, V Consulting Unavailable TJ DAVID, JAY Consulting Unavailable TJ DAVID, JAY Consulting Unavailable WOOD DO, ANUPAMA A Consulting Unavailable WOOD DO, ANUPAMA A Consulting Unavailable DOUP BOARD HAMMER OPERATOR~[id number], DOUP ITZ R Admitting Unavailable DOUP BOARD HAMMER OPERATOR~[id number], DOUP ITZ R Attending Unavailable NONE, NONE Primary Care Unavailable DOUP BOARD HAMMER OPERATOR, ITZ R Consulting Unavailable DOUP BOARD HAMMER OPERATOR, ITZ R Consulting Unavailable NONE, NONE Consulting [...] (1 source) Acetaminophen / HYDROcodone Drug Allergy [facility] Repository Problems Active Problems Problem Classification Problem [...] Start: 06-05-2023 End: 06-05-2023 ambulatory BENI BAZAN BOARD HAMMER OPERATOR~[id number] Facility:[facility] Start: 04-14-2023 End: 04-14-[address] [facility] Start: 03-04-2023 End: 03-05-2023 ambulatory MOHAMUD RIVERO MD Facility:[facility] Start: 11-11-2022 End: 11-12-2022 ambulatory WILSON RACHEL DO~[id number] Facility:[facility] Start: 02-04-2022 End: 02-04-2022 ambulatory UMER Santiago [facility] Payers Date Payer Category Payer Unknown [id number] [id number] [id number] 1992 Unknown [id number] 1992 Unknown [id number] 2.16.8 [id number] 1992 Unknown [id number] 2.16.8 [id number] 1992 Unknown [id number] 2.16.8 [id number] 1959 Unknown [id number] 1959 Unknown [id number] Clinical Note 03-04-2023 Note Date & Type [...] pattern, normal vascularity. 2. No thyroid nodule. [facility] Summary Purpose Family History No Family History Records FoundNo Family History Records FoundNo Family History Records Found Advance Directives No Advanced Directives Records FoundNo Advanced Directives Records FoundNo Advanced Directives Records Found Additional Source Comments INFORMATION SOURCE (unrecogn ized section and content) DATE CREATED AUTHOR AUTHOR'S ORGANIZ ATION 04/17/2023 [facility] DATE CREATED AUTHOR AUTHOR'S ORGANIZ ATION 06/10/2023 [facility] FOR RECORDS PERTAINING TO PATIENTS WHO [...] BE BASED ON THE PRIMARY CLINICAL RECORDS. [facility] [employer] [facility]. provides no warranty or guarantee of the accuracy or completeness of information in this document.
[2023-08-09 17:37] LABS: Protein, Urine (Random) 6.9 mg/dL (<11.9); Protein:Creat Ratio 114 mg/g CRE (0-200)
== END | disposition home or self-care (01) ==
LOC: LABSPEC 16:58
PROVIDERS: Referring Provider Obstetrics & Gynecology; Visit Provider Obstetrics & Gynecology
DX: Z34.90 Encounter for supervision of normal pregnancy, unspecified, unspecified trimester (principal); Z3A.00 Weeks of gestation of pregnancy not specified
CPT/HCPCS: 82570; 84156

== ENCOUNTER → 2023-08-15 | Outpatient (CLI) | payer OTHER, SELFPAY ==
[2023-08-15 17:28] LABS: Absolute Lymphocyte Count 2.61 X10^3/uL (0.83-4.51); Absolute Neutrophil Count 7.6 X10^3/uL (2.0-7.7); Basophil# 0.04 X10^3/uL; Basophil% 0.4 % (0-1); Eosinophil# 0.13 X10^3/uL; Eosinophils% 1.1 % (0-5); Hematocrit 36.4 % (37-47); Hemoglobin 12.2 g/dL (12.0-15.0); Lymphocyte # 2.61 X10^3/ul (0.83-4.51); Lymphocyte % 22.9 % (19-41); Mean Corp Hgb Conc 33.5 g/dL (32-36); Mean Corpuscular Hgb 29.8 pg (27.0-32.0); Mean Platelet Vol. 10.4 fl (6.2-12.0); Monocyte# 0.92 X10^3/uL; Monocyte% 8.1 % (0-10); NRBC Flagged by Analyzer 0 % (0-5); Neutrophil # 7.62 X10^3/uL (2.7-7.7); Neutrophil % 66.8 % (47-70); Platelet Count 187 K/mm3 (150-450); RBC Distribution Width CV 14.3 % (11.6-14.6); RBC Distribution Width SD 44.7 fl (35.1-43.9); Red Blood Count 4.09 M/mm3 (4.2-5.4); White Blood Count 11.4 K/mm3 (4.4-11.0)
[2023-08-15 17:38] LABS: Protein, Urine (Random) 6.5 mg/dL (<11.9); Protein:Creat Ratio 215 mg/g CRE (0-200)
[2023-08-15 18:01] LABS: ALB/GLOB Ratio 0.9 RATIO (0.9-2.4); AST(SGOT) 12 U/L (15-37); Alanine Aminotransfer ALT/SGPT 18 U/L (13-56); Alkaline Phosphatase 87 U/L (45-117); Anion Gap 6 (5-15); BUN 10 mg/dL (7-18); Calcium,Total 9.2 mg/dL (8.5-10.1); Chloride 107 mmol/L (98-107); Creatinine, Serum 0.46 mg/dL (0.55-1.02); EST Glomerular Filtration Rate 170 mL/min (>60); Est Glom Filt Rate - Afr Amer 206 mL/min (>60); Globulin 3.5 g/dL (2.2-4.2); Glucose 82 mg/dL (74-106); Potassium 3.7 mmol/L (3.5-5.1); Protein, Total 6.5 g/dL (6.4-8.2); Sodium Level 135 mmol/L (136-145)
== END | disposition home or self-care (01) ==
PROVIDERS: Referring Provider Obstetrics & Gynecology; Visit Provider Obstetrics & Gynecology
DX: O13.9 Gestational [pregnancy-induced] hypertension without significant proteinuria, unspecified trimester (principal); Z3A.00 Weeks of gestation of pregnancy not specified
CPT/HCPCS: 36415; 80053; 82570; 84156; 85025; 87081

== ENCOUNTER → 2023-08-17 | Outpatient (CLI) | payer OTHER, SELFPAY ==
--- NOTE | 2023-08-17 18:22 | US_ITS ---
STUDY: OBSTETRICAL ULTRASOUND - BIOPHYSICAL PROFILE REASON FOR EXAM: Female, 33 years old WELL BEING LMP: PRIOR ULTRASOUND: None. TECHNIQUE: Transabdominal TECHNICAL QUALITY: Adequate. FINDINGS: There is a single intrauterine fetus. The fetus is in a cephalic presentation. There is demonstrated cardiac activity with a heart rate of 185 bpm. There is a normal amniotic fluid volume. The largest amniotic fluid pocket measures 6.3 cm. The amniotic fluid index (DAO) is 16.4 cm. The placenta is anterior and not low-lying There are Grade 2 placental changes. Age by LMP: 36 weeks, 5 days. MARY by LMP: September 09, 2023. BIOPHYSICAL PROFILE: Breathing Movements (FBM): 2 Gross Body Movements (GBM): 2 Tone (FT): 2 Amniotic Fluid Volume (AFV): 2 TOTAL SCORE: US/Biophysical Prof W/O Non Stres IMPRESSION: Normal biophysical profile of 02/15. Electronically Signed: Miguel Madera MD at 22:28 EST Reading Location ID and State: [address] [place] [address] Tel , Service support ,
--- NOTE | 2023-08-17 18:22 | US_ITS ---
STUDY: SECOND AND THIRD TRIMESTER OBSTETRICAL ULTRASOUND - LIMITED REASON FOR EXAM: Female, 33 years old GROWTH LMP: 12/03/2022. PRIOR ULTRASOUND: 07/18/2023. TECHNIQUE: Transabdominal TECHNICAL QUALITY: Adequate. FINDINGS: There is a single intrauterine fetus. The fetus is in a cephalic presentation. There is demonstrated cardiac activity with a heart rate of 185 bpm. There is a normal amniotic fluid volume. The largest amniotic fluid pocket measures 3.8 x 5.8 cm. The amniotic fluid index (DAO) is 17.7 cm. The placenta is anterior in location and is not low lying. There are Grade 2 placental changes. The cervix measures 3.2 cm in length. The cervix is closed. BIOMETRY: BPD: 9.04 cm: 36 weeks, 5 days HC: 33.93 cm: 39 weeks, 0 days AC: 31.81 cm: 35 weeks, 5 days FL: 6.88 cm: 35 weeks, 2 days Age by LMP: 36 weeks, 5 days. MARY by LMP: 09/09/2023. MARY by prior US: 09/02/2023. age by current US: 37 weeks, 0 days. MARY by current US: 09/07/2023. Estimated weight: 2799 grams, +/- 420 grams, 34 percentile. Exam is not dedicated to evaluate anatomy and therefore is limited in this regard. The ratios are as follows: FL/AC: 21.63 FL/BPD: 76.09 FL/HC: 20.20 CI: 74.66 HC/AC: 1.07 US/OB Limited With Biometrics IMPRESSION: Single intrauterine with ultrasound age of 37 weeks and 0 days and estimated date of delivery of 09/07/2023. Vertex presentation. Anterior placenta with no evidence of previa. Normal amniotic fluid. Normal cardiac activity. Electronically Signed: Eneida Bolivar MD at 20:39 EST ,
== END | disposition home or self-care (01) ==
LOC: OPUS 18:20
PROVIDERS: Referring Provider Obstetrics & Gynecology; Visit Provider Obstetrics & Gynecology
DX: Z34.90 Encounter for supervision of normal pregnancy, unspecified, unspecified trimester (principal); Z3A.00 Weeks of gestation of pregnancy not specified
CPT/HCPCS: 76816; 76819

== ENCOUNTER 2023-08-19 06:55 | Inpatient (IN) | payer OTHER, SELFPAY ==
[2023-08-19] VITALS (45 sets, daily range): BP systolic 75–137; BP diastolic 39–85; PULSE 56–198; TEMP 35.9–37.1; O2SAT 96–100; BMI 30.7
--- OUTSIDE RECORDS SUMMARY | 2023-08-19 07:28 | XMS RPT_ITS | CCD ---
Author Name Unknown Address [address] [place] [address] Organization [facility] Care Team Providers Care Archivist [employer] Name Role Phone UMER DE JESUS NP Attending Unavailable UMER DE JESUS NP Consulting Unavailable UMER DE JESUS NP Primary Care Unavailable UMER DE JESUS POLISHER SAND Admitting Unavailable PROVIDER, UNKNOWN Consulting Unavailable CHARLEE ROBISON Referring Unavailab CHARLEE Hutchinson Attending Unavailab BRIANNE Farrell Primary Care Unavailabl e WOOD DO~[id number], WOOD ANUPAMA A Admitting Unavailable WOOD DO~[id number], WOOD ANUPAMA A Attending Unavailable JAY PERERA MD, V Consulting Unavailable TJ DAVID~[id number], TJ THOMPSON Primary Care Unavailable JAY PERERA MD, V Consulting Unavailable TJ DAVID, JAY Consulting Unavailable TJ DAVID, JAY Consulting Unavailable WOOD DO, ANUPAMA A Consulting Unavailable WOOD DO, ANUPAMA A Consulting Unavailable DOUP FIREBRICK LAYER~[id number], DOUP ITZ R Admitting Unavailable DOUP FIREBRICK LAYER~[id number], DOUP ITZ R Attending Unavailable NONE, NONE Primary Care Unavailable DOUP FIREBRICK LAYER, ITZ R Consulting Unavailable DOUP FIREBRICK LAYER, ITZ R Consulting Unavailable NONE, NONE Consulting [...] (1 source) Acetaminophen / HYDROcodone Drug Allergy [facility] Repository Problems Active Problems Problem Classification Problem [...] Start: 06-05-2023 End: 06-05-2023 ambulatory BENI BAZAN FIREBRICK LAYER~[id number] Facility:[facility] Start: 04-14-2023 End: 04-14-2023 ambulatory CHARLEE ROBISON [facility] Start: 03-04-2023 End: 03-05-2023 ambulatory MOHAMUD RIVERO MD Facility:[facility] Start: 11-11-2022 End: 11-12-2022 ambulatory WILSON RACHEL DO~[id number] Facility:[facility] Start: 02-04-2022 End: 02-04-[address] [facility] Payers Date Payer Category Payer Unknown [id number] [id number] [id number] 1992 Unknown [id number] 1992 Unknown [id number] [id number] 1992 Unknown [id number] [id number] [id number] 1992 Unknown [id number] 2.16.8 [id number] 1959 Unknown [id number] 1959 Unknown [id number] Clinical Note 03-04-2023 Note Date & Type [...] pattern, normal vascularity. 2. No thyroid nodule. [facility] Summary Purpose Family History No Family History Records FoundNo Family History Records FoundNo Family History Records Found Advance Directives No Advanced Directives Records FoundNo Advanced Directives Records FoundNo Advanced Directives Records Found Additional Source Comments INFORMATION SOURCE (unrecogn ized section and content) DATE CREATED AUTHOR AUTHOR'S ORGANIZ ATION 04/17/2023 [facility] DATE CREATED AUTHOR AUTHOR'S ORGANIZ ATION 06/10/2023 [facility] FOR RECORDS PERTAINING TO PATIENTS WHO [...] BE BASED ON THE PRIMARY CLINICAL RECORDS. [facility]. provides no warranty or guarantee of the accuracy or completeness of information in this document.
[2023-08-19] MEDS: Lactated Ringers 1,000 ML 50 ML IV (08:00)
--- NOTE | 2023-08-19 08:03 | HP.PCM.OB_ITS ---
HPI - General General Date of Admission: 08/19/23 HPI Narrative EUGENIA ASTUDILLO, is a 33 y/o @ 37 weeks who presents to L&D for induction of labor for induced hypertension. Maternal Data Information MARY Calculator Estimated Delivery Date Method Current WG Current Estimate 09/09/23 LMP (Certain) 37w 0d Other Estimates 09/09/23 Ultrasound #1 37w 0d PFSH PFSH Home Medications PNV-iron 29 mg-folic acid 1 oz-ujpjc-2-dha 200 mg oral combo pack 1 pkg PO 01/27/23 [History Last Taken 07/31/23 20:00 1 pkg] Allergy/AdvReac Type Severity Reaction Status Date / Time No Known Allergies Allergy Verified 08/15/23 16:07 Family History Father Heart disease Hypertension Brother CVA (cerebral vascular accident) Brother No problems noted. Grandfather CVA (cerebral vascular accident) Grandmother Hypothyroidism Surgical History History of placement of ear tubes Hx of LASIK S/P ACL surgery Social History adopted: No household members: family number of children: 2 current occupational status: employed current occupation: [employer] pets and animals: Yes pets and animals: dog(s) history of recent travel: Yes out of state: Yes sexually active: Yes Smoking Status: Never smoker alcohol intake: never substance use type: does not use caffeine: No what type of physical activity do you participate in: other details: cardio and additional frequency: 3-4 times per week seatbelt use: always do you feel safe at home: Yes additional social history: Spouse Yusuf History 3 Elective abortions Hx Para 2 Spontaneous abortions Hx # Term Pregnancies 2 Ectopic pregnancies Hx # Pregnancies Multiple births # of living children 2 Past Pregnancies Del. Date Name GA/Weeks Outcome Route Bth Weight Gen Labor Lgth Anesthesia Del Locatn Provider FOB 03/06/18 Edgar 40 live - full term Female epi dural [facility] DEREK 09/02/20 Nguyen 37 live - full term Female epidu ral [facility] SM Delivery Date: 08/27/18 Last Updated by: Eileen Taylor Meconium Delivery Date: 09/02/20 Last Updated by: Eileen Taylor IoL GHTN Visit Details Expected Delivery Route/Plan Labor Preferences- CB/BF classes: [] labor support person: [] labor intervention preferences: [] pain management options preferred: [] cut cord/dad catch: [] : [] PP control planned: [] discussed possible routes of delivery and associated risks: [] special requests: [] Plans Covid status: declined Flu vaccine: given Tdap vaccine: given Rhogam: given LARC form signed: movement and labor precautions reviewed. Problem list reviewed and updated with the most current plan of care details and appropriate orders placed. Relevant counseling for the gestational age provided. Continue routine care and follow up unless otherwise noted in visit notes/problem list details OB Flowsheet Initial Weight: Not Recorded Date -?-?-?-?-?-?-?-?-?-?-?-?- EGA Weight BP Urine Prot -?-?-?-?-?-?-?-?-?-?-?-?- Glucose FHR FuHt Pres Dilation -?-?-?-?-?-?-?-?-?-?-?-?- Effaced St Visit Note 02/08/23 -?-?-?-?-?-?-?-?-?-?-?-?- 9w 4d 174 lb 6 oz 136/82 -?-?-?-?-?-?-?-?-?-?-?-?- -?-?-?-?-?-?-?-?-?-?-?-?- JV- CRL measured 28.3 cm = 9 weeks 4 days and this is consistent with LMP. wants NIPT. 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 03/10/23 -?-?-?-?-?-?-?-?-?-?-?-?- 13w 6d 174 lb 2 oz 118/76 Nega tive -?-?-?-?-?-?-?-?-?-?-?-?- Negative 156 -?-?-?-?-?-?-?-?-?-?-?-?- JV- nipt reviewe d today- it was abnormal but low fraction and patient carries the known deletion. She does not want to repeat the test. plan for mfm us at 18 weeks. compazine ordered for persistent nausea. consulting Dr. Kelly for abnormal thyroid level in detected in pcp office. 04/08/23 -?-?-?-?-?-?-?-?-?-?-?-?- 18w 0d 176 lb 4 oz 122/74 Nega tive -?-?-?-?-?-?-?-?-?-?-?-?- Negative 150 -?-?-?-?-?-?-?-?-?-?-?-?- SM- no vb lof go od fm discussed genetic findings, seeing mfm for anatomy scan and to decide if any invasive testing desired 05/02/23 -?-?-?-?-?-?-?-?-?-?-?-?- 21w 3d 181 lb 6 oz 122/70 Nega tive -?-?-?-?-?-?-?-?-?-?-?-?- Negative 150 -?-?-?-?-?-?-?-?-?-?-?-?- SM- no vb lof go od fm no regular ctx discussed placenta 05/30/23 -?-?-?-?-?-?-?-?-?-?-?-?- 25w 3d 187 lb 136/80 Negative -?-?-?-?-?-?-?-?-?-?-?-?- Negative 140 -?-?-?-?-?-?-?-?-?-?-?-?- JV- no lof, vagi nal bleeding, or dec fm. has a head cold. neg for covid. rec OTC remedies. 06/21/23 -?-?-?-?-?-?-?-?-?-?-?-?- 28w 4d 192 lb 6 oz 134/79 Nega tive -?-?-?-?-?-?-?-?-?-?-?-?- Negative 145 28 -?-?-?-?-?-?-?-?-?-?-?-?- SM- no vb lof go od fm no regular ctx 07/06/23 -?-?-?-?-?-?-?-?-?-?-?-?- 30w 5d 195 lb 2 oz 124/78 Nega tive -?-?-?-?-?-?-?-?-?-?-?-?- Negative 145 30 Cephalic -?-?-?-?-?-?-?-?-?-?-?-?- JV- no complaint s today. wants pp tubal (remote from delivery)+ fm 07/18/23 -?-?-?-?-?-?-?-?-?-?-?-?- 32w 3d 200 lb 118/70 Negative -?-?-?-?-?-?-?-?-?-?-?-?- Negative 145 32 -?-?-?-?-?-?-?-?-?-?-?-?- SM- no vb lof go od fm no regular ctx 08/01/23 -?-?-?-?-?-?-?-?-?-?-?-?- 34w 3d 202 lb 6 oz 110/70 Nega tive -?-?-?-?-?-?-?-?-?-?-?-?- Negative 148 34 -?-?-?-?-?-?-?-?-?-?-?-?- MH-No VB, LOF. G ood FM. Headache today and last 3 days. Vision changes also and BP elevated on home monitor but did not call. BP ok today but headache persists, URQ pain but states under ribs and more like numbness. Pre E labs pending and will review management w Dr Ness 08/09/23 -?-?-?-?-?-?-?-?-?-?-?-?- 35w 4d 198 lb 6 oz 136/84 Nega tive -?-?-?-?-?-?-?-?-?-?-?-?- Negative 130 35 -?-?-?-?-?-?-?-?-?-?-?-?- JV- no pre-e sym ptoms. rpt prot: cr today. plan for delivery at 37 weeks or sooner for severe features or severe bp's. JV- no pre-e symptoms. rpt p rot: cr today. plan for delivery at 37 weeks or sooner for severe features or severe bp's. last labs were done less than 4 days ago. plan to rpt at next visit. 08/12/23 -?-?-?-?-?-?-?-?-?-?-?-?- 36w 0d 199 lb 8 oz 119/75 Nega tive -?-?-?-?-?-?-?-?-?-?-?-?- Negative 145 37 Cephalic -?-?-?-?-?-?-?-?-?-?-?-?- JV- no lof, vagi nal bleeding, or dec fm. DAO is 21, NST reactive. bp cuff given due to discrepancy in bp numbers here and at home. plan iol for pih next tuesday. pt left before we realized she needs a GBS. will need to collect it early next week. 08/15/23 -?-?-?-?-?-?-?-?-?-?-?-?- 36w 3d 202 lb 121/79 -?-?-?-?-?-?-?-?-?-?-?-?- 140 Cephalic -?-?-?-?-?-?-?-?-?-?-?-?- SM- no vb lof go od fm no regular ctx plan preeclampsia labs now and add bpp to tuesday scan, plan IOL tuesday. ROS Constitutional Constitutional: Denies change in weight, fatigue, fever(s), headache(s), poor appetite or weakness Eyes Eyes: Denies blurry vision, change in vision, seeing flashes or spots in vision ENT HEENT: Denies dizziness, headache(s), loss taste/smell or sore throat Cardiovascular Cardiovascular: Denies chest pain, dizziness, dyspnea, irregular heart rhythm, leg edema, palpitations, rapid heart rate or vomiting Respiratory/Chest Respiratory/Chest: Denies chest tightness, cough, dyspnea or breast pain Gastrointestinal Gastrointestinal: Denies abdominal pain, anorexia, constipation, cramping, diarrhea, hemorrhoids, vomiting or weight changes Genitourinary Genitourinary: Denies dysuria, flank pain, genital lesions, genital pain, urinary frequency or urinary urgency Musculoskeletal Musculoskeletal: Denies back pain, difficulty walking, joint pain, limited range of motion, muscle cramps or numbness Integumentary Integumentary: Denies lesions or unusual bruising Neurologic Neurologic: Denies abnormal movements, abnormal speech, dizziness, numbness, seizure-like activity or syncope Psychiatric Psychiatric: Denies anxiety, behavioral changes, change in appetite, change in libido, cognitive impairment, confusion, depression, difficulty concentrating, hallucinations or suicidal thoughts Endocrine Endocrinology: Denies excessive sweating, polydipsia or polyuria Hematologic/Lymphatic Hematologic/Lymphatic: Denies easy bleeding, easy bruising or lymphadenopathy Allergic/Immunologic Allergic/Immunologic: Denies itchy eyes, lip swelling, seasonal rhinorrhea, rhinitis, throat swelling, tongue swelling, eczemia, wheezing or asthma Vital Signs Vital Signs Vital Signs: 08/19/23 07:34 08/19/23 07:34 08/19/23 07:35 Temperature 98.8 F Temperature Source Pulse Rate 120 H Blood Pressure 137/85 H BP Systolic 137 BP Diastolic 85 Pulse Ox 08/19/23 07:35 08/19/23 07:35 08/19/23 07:35 Temperature Temperature Source Core Pulse Rate 123 H Blood Pressure BP Systolic BP Diastolic Pulse Ox 97 08/19/23 07:40 Temperature 98.8 F Temperature Source Pulse Rate Blood Pressure BP Systolic BP Diastolic Pulse Ox Physical Exam Const alert, oriented x3, no apparent distress and healthy appearing General Appearance: cooperative; Negative for anxious HEENT normocephalic Face and Sinus: normal facial exam Eyes EOMs intact bilaterally and no scleral icterus General Eye: normal appearance of both eyes Neck full ROM and supple Lymph Lymphatic: no lymphadenopathy noted Chest Chest: abnormal inspection of the chest Resp normal respiratory effort Effort and Inspection: able to speak in complete sentences Cardio regular rate GI soft to palpation and non-tender Inspection: gravid Palpation: soft; Negative for tender external exam normal Narrative: cx is 1/thick/high and midposition Back/Spine no CVA tenderness Extremity normal to inspection, full ROM and no clubbing, cyanosis or edema General Extremity: Negative for calf tenderness or edema Skin Lesions: no lesions Rashes: no rashes Psych mental status grossly normal Labs Labs Labs: Blood Type O NEGATIVE Antibody Screen POSITIVE Hct 36.4 % (37-47) L Hgb 12.2 g/dL (12.0-15.0) Pap Smear Negative Obstetrics Ultrasound Syphilis Total Ab Non-reactive Rubella IgG Antibody Reactive (Nonreactive) Hep Bs Antigen Non-Reactive (Nonreactive) Hepatitis C Antibody Non-Reactive (Nonreactive) HIV 1&2 Antibody Non-Reactive (Nonreactive) Glucose 1 Hr 50 gm 127 mg/dL (70-140) Group B Strep DNA Negative (Negative) Rhogam given: Yes Miscellaneous Test Assessment & Plan (1) Gestational hypertension: COMMENT: admitted STO 08/01 given celestone x 2. monitored and labs WNL, VALENCIA resolved, normal to mildly elevated bp. discussed with MFM, monitor with twice weekly NSTs and weekly labs, deliver at 37 weeks or sooner if severe range pressure or neurologic symptoms. (2) Rh negative state in antepartum period: COMMENT: RhoGAM at 28 weeks or as needed for bleeding, Rhogam given 06/21/23. 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 05/17 24WK 50% 32w:66% (4) : QUALIFIERS: Weeks of gestation: 36 weeks Qualified Code(s): Z3A.36 - 36 weeks gestation of COMMENT: DOC ONLY. discussed NIPT.- not enough fraction. pt declines rpt. she carries a known deletion. (5) Supervision of high risk , antepartum: COMMENT: PRR MARY 09/09/23 girl PC Edgar Nguyen, Spouse Yusuf PLAN: Plan Patient presents IOL, plan management for with pitocin+ win bulb then AROM Pain management: plans epidural. GBS negative. Management of any complications: GHTN I have reviewed the [facility] and made any clinically relevant updates.
[2023-08-19 08:13] LABS: Absolute Lymphocyte Count 2.39 X10^3/uL (0.83-4.51); Absolute Neutrophil Count 7.4 X10^3/uL (2.0-7.7); Basophil# 0.02 X10^3/uL; Basophil% 0.2 % (0-1); Eosinophil# 0.07 X10^3/uL; Eosinophils% 0.7 % (0-5); Hematocrit 35.3 % (37-47); Hemoglobin 12.1 g/dL (12.0-15.0); Lymphocyte # 2.39 X10^3/ul (0.83-4.51); Lymphocyte % 22.8 % (19-41); Mean Corp Hgb Conc 34.3 g/dL (32-36); Mean Corpuscular Hgb 29.5 pg (27.0-32.0); Mean Corpuscular Volume 86.1 fL (81-99); Mean Platelet Vol. 10.4 fl (6.2-12.0); Monocyte# 0.57 X10^3/uL; Monocyte% 5.4 % (0-10); NRBC Flagged by Analyzer 0 % (0-5); Neutrophil # 7.38 X10^3/uL (2.7-7.7); Neutrophil % 70.2 % (47-70); Platelet Count 169 K/mm3 (150-450); RBC Distribution Width CV 14.4 % (11.6-14.6); RBC Distribution Width SD 43.9 fl (35.1-43.9); White Blood Count 10.5 K/mm3 (4.4-11.0)
[2023-08-19] MEDS: 0.9% Normal Saline Single 100 ML IV.SOLN. INTRA-UTER (08:15)
[2023-08-19] MEDS: Oxytocin 15 Units/NS 250ml 15 UNITS/250 ML IV.SOLN 2 UNITS IV (08:47)
[2023-08-19 09:49] LABS: Syphilis Antibodies Non-reactive
[2023-08-19] MEDS: Lactated Ringers 1,000 ML 999 ML IV (11:05)
[2023-08-19] MEDS: fentaNYL-bupivacaine (epidural) 100 ML BAG EPIDURAL ×2 (12:31→19:35)
[2023-08-19] MEDS: LACTATED RINGERS 500 ML 999 ML IV (13:20)
[2023-08-19] MEDS: Acetaminophen 500 MG Tablet PO (13:50)
[2023-08-19] MEDS: Ondansetron 4 MG/2 ML Vial IV (17:52)
[2023-08-19] MEDS: Lactated Ringers 1,000 ML 200 ML IV (19:29)
--- NOTE | 2023-08-19 21:16 | PCM.PN.BLA ---
Progress Note nurse called to report that patient is now on 20 mu/min of pitocin (max pit) and cervix is still only 6 cm. instructions given to increase to 25 mu/min. Pt is currently on side and consents to side lying release current tracing: FHT: Moderate variability reactive no decelerations category I tracing [place]: q 2 min Contractions MUV less than adequate still. cx: 6/80/0, head position is LOP and attempt made to rotate prior to putting in side lying release A/P: protracted labor flip side in 5 minutes to do side lying release on the opposite side. if still no cervical change will perform a pit wash and half the pit then start climbing back up.
[2023-08-20] VITALS (33 sets, daily range): BP systolic 107–135; BP diastolic 60–76; PULSE 79–110; RESP 16; TEMP 36.4–36.9; O2SAT 98–99
[2023-08-20] MEDS: Oxytocin 15 Units/NS 250ml 15 UNITS/250 ML IV.SOLN 83 UNITS IV (00:20)
[2023-08-20] MEDS: Oxytocin 10 UNITS/ML Vial IM (00:21)
--- NOTE | 2023-08-20 00:36 | OP.PCM_ITS ---
Assessment & Plan (1) Gestational hypertension: COMMENT: admitted STO 08/01 given celestone x 2. monitored and labs WNL, VALENCIA resolved, normal to mildly elevated bp. discussed with MFM, monitor with twice weekly NSTs and weekly labs, deliver at 37 weeks or sooner if severe range pressure or neurologic symptoms. (2) Rh negative state in antepartum period: COMMENT: RhoGAM at 28 weeks or as needed for bleeding, Rhogam given 06/21/23. 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 05/17 24WK 50% 32w:66% (4) : QUALIFIERS: Weeks of gestation: 36 weeks Qualified Code(s): Z3A.36 - 36 weeks gestation of COMMENT: DOC ONLY. discussed NIPT.- not enough fraction. pt declines rpt. she carries a known deletion. (5) Supervision of high risk , antepartum: COMMENT: PRR MARY 09/09/23 girl PC Nguyen Hernández, Spouse Yusuf Maternal Data Information MARY Calculator Estimated Delivery Date Method Current WG Current Estimate 09/09/23 LMP (Certain) 37w 1d Other Estimates 09/09/23 Ultrasound #1 37w 1d Final MARY Source: US <20 weeks Gestational age: 37 weeks 1 day Vaginal Delivery Maternal Presentation Maternal Presentation: Medically Indicated Induction Type of Induction: Pitocin, Sheridan Bulb and Amniotomy Medical Reason for Induction: Gestational Hypertension Operative Information Date of Procedure: 08/20/23 Pre-Operative Diagnosis: @ 37 weeks, gestational hypertension Post-Operative Diagnosis: @ 37 weeks, gestational hypertension Type of Anesthesia: Epidural Drain: Sheridan to straight drain Estimated Blood Loss: 100cc Time of Delivery: 00:16 Findings Description of Procedure: Patient began pushing and delivered the head in the AGUILA presentation. The head was delivered atraumatically and a loose nuchal cord ?1 was identified and easily reduced over the infant's head. The anterior and posterior shoulders delivered without complication followed by the rest of the and the was placed on the maternal abdomen. Delayed cord clamping was employed for approximately 60 seconds. Cord was clamped and cut and gentle traction was applied to the cord and the placenta delivered spontaneously immediately following it was noted to be intact with three-vessel cord. The perineum and vagina were inspected and noted to have no laceration. EBL was 100 cc. Patient and infant tolerated delivery well. Presentation: Vertex Amniotic Membrane Rupture Type: Artificial Time of Membrane Rupture: 1300 Amniotic Fluid Description: Clear Placental Delivery Description: Spontaneous Placenta Disposition: [facility] Cord Vessel Description: 3 Vessels Cord Entanglement: Around neck x 1, loose Nuchal Cord Compression: Without compression Infant A Gender: Female (1 minute): 8 (5 minute): 9 Delayed Cord Clamping: Yes Post Vaginal Delivery Medications Given After Delivery: IV Pitocin and IM Pitocin Episiotomy Description: None Laceration: None Complication Complications: None Multi Select Codes Urinary/Genital Urinary/Genital CPT Codes: 09894 Vaginal Delivery [facility]
--- NOTE | 2023-08-20 00:39 | DCINST_ITS ---
Discharge Instructions Diet Discharge Diet: No restrictions Activity Discharge Activity: Return to Normal Activity, May Not Drive (while taking narcotic pain medications.) and May Shower May resume sexual activity in: 4-6 weeks Dressing / Incision Call your doctor if your incision/area has: Continuous Slow Oozing, Sudden Increased Bleeding, Increased Pain/ Swelling, Increased Redness and Foul Smelling Discharge Follow Up Care Please Follow Up With: Catie Figueroa, DO When: Call [phone] to make an appointment with your doctor in 6 weeks. If you had elevated blood pressure or 4th degree laceration, you will need to be seen in 2 weeks. Test Results: Test results from this visit will be discussed in further detail at your follow- up appointment, if applicable. Discharge Plan Admission Admit Date/Time: 08/19/23 06:55 Attending Provider: Catie Figueroa Primary Care Provider: Care Physician,No Primary Discharge Orders/Prescriptions Prescriptions: No Action PNV cmb 52-ucnu-XY-omega-3-dha 29 mg iron- 1 mg-200 mg combo pack 1 pkg PO Referrals / Follow Up: Care Physician,No Primary [Primary Care Provider] -
--- NOTE | 2023-08-20 03:36 | NURSING ---
Epidural cath removed, tip intact
[2023-08-20] MEDS: Ibuprofen 600 MG Tablet PO (05:46)
[2023-08-20] MEDS: Rho(D) Immune Globulin 300 MCG (1500 Unit) Syringe IV (06:28)
[2023-08-20] MEDS: 0.9% Saline Lock 10 ML Syringe IV (06:29)
--- NOTE | 2023-08-20 10:08 | PCM.PN.OB ---
Subjective Subjective Patient doing well without complaints. Tolerating PO. Ambulating and voiding without difficulty. Feeding well. Denies chest pain, shortness of breath, calf pain/swelling, fevers, chills, lightheadedness. Objective Data Objective Data Vital Signs: Vital Signs Temp Pulse Resp BP Pulse Ox O2 Del Method 98.4 F 82 16 128/68 H 99 Room Air 08/20/23 07:51 08/20/23 07:51 08/20/23 07:51 08/20/23 07:51 08/20/23 07:51 08/20/23 07:51 Oxygen Delivery Method Room Air Weight: 202 lb 6.4 oz Body Mass Index (BMI) 30.7 Intake & Output: Intake and Output for Last 24 Hours 08/18/23 08/19/23 08/20/23 23:59 23:59 23:59 Intake Total 2656.66 / 2656.66 1206.67 / 1206.67 Output Total 1300 / 1300 1150 / 1150 Balance 1356.66 / 1356.66 56.67 / 56.67 Lab / Micro Data 08/19/23 08:00 Labs: Laboratory Results - last 24 hr 08/19/23 08:00: Antibody Identification ANTI-D 08/20/23 05:13: Screen NEGATIVE, Baby's Blood Type A POSITIVE, Baby's ANGELA NEGATIVE ROS Constitutional Constitutional: Denies chills, fatigue, fever(s), poor appetite or weakness Eyes Eyes: Denies blurry vision, change in vision, seeing flashes or spots in vision ENT HEENT: Denies dizziness, headache(s), loss taste/smell or sore throat Cardiovascular Cardiovascular: Denies chest pain, dizziness, dyspnea, irregular heart rhythm, palpitations or rapid heart rate Respiratory/Chest Respiratory/Chest: Denies chest tightness, cough, dyspnea or breast pain Gastrointestinal Gastrointestinal: Denies abdominal pain, constipation or vomiting Genitourinary Genitourinary: Denies dysuria or flank pain Musculoskeletal Musculoskeletal: Denies difficulty walking, joint pain, limited range of motion or numbness Neurologic Neurologic: Denies abnormal movements, abnormal speech, dizziness, numbness, seizure-like activity or syncope Psychiatric Psychiatric: Denies anxiety, behavioral changes, change in appetite, confusion, depression or suicidal thoughts Physical Exam Const alert, oriented x3 and no apparent distress General Appearance: cooperative and comfortable Resp normal respiratory effort Cardio regular rate GI normal to inspection, nondistended, normoactive bowel sounds GI Narrative: uterus is firm below umbilicus Palpation: soft Back/Spine no CVA tenderness and thoraco-lumbar ROM normal Extremity normal to inspection, no clubbing, cyanosis or edema, no calf tenderness and no pedal edema Psych mental status grossly normal, thought process normal, cooperative, affect normal, speech normal, activity/motor behavior normal, denies homicidal ideation and denies suicidal ideation Assessment & Plan (1) Gestational hypertension: COMMENT: admitted STO 08/01 given celestone x 2. monitored and labs WNL, VALENCIA resolved, normal to mildly elevated bp. discussed with MFM, monitor with twice weekly NSTs and weekly labs, deliver at 37 weeks or sooner if severe range pressure or neurologic symptoms. (2) Rh negative state in antepartum period: COMMENT: RhoGAM at 28 weeks or as needed for bleeding, Rhogam given 06/21/23. (3) Status post vaginal delivery: COMMENT: bb girl Flynn 08/20/23- JV PLAN: s/p PPD #0 1. routine post delivery care 2. breast feeding- support given 3. rh negative -rhogam workup ordered 4. rubella immune
[2023-08-21 01:10] VITALS: BP 125/73; PULSE 68; RESP 17; TEMP 36.3; O2SAT 97
[2023-08-21 01:14] VITALS: BP 125/73; PULSE 66
[2023-08-21 08:31] VITALS: BP 143/80; PULSE 90
[2023-08-21 08:33] VITALS: TEMP 35.8; TEMP 36
[2023-08-21 08:45] VITALS: BP 143/80; PULSE 91; RESP 16; TEMP 36; O2SAT 97
[2023-08-21 09:07] VITALS: BP 115/63; BP 115/64; PULSE 83
--- NOTE | 2023-08-21 09:56 | PCM.DC.SUM ---
Providers Date of Admission: 08/19/23 Primary Care Physician: No Primary Care Phys Reason For Visit: VAG Diagnosis Discharge Diagnosis (1) Gestational hypertension: Status: Acute Code(s): O13.9 - Gestational [-induced] hypertension without significant proteinuria, unspecified trimester (2) Rh negative state in antepartum period: Status: Acute Code(s): O26.899 - Other specified related conditions, unspecified trimester; Z67.91 - Unspecified blood type, Rh negative (3) Status post vaginal delivery: Status: Acute Plan: s/p PPD #0 1. routine post delivery care 2. breast feeding- support given 3. rh negative -rhogam workup ordered 4. rubella immune Medications at Discharge Home Medications PNV-iron 29 mg-folic acid 1 hr-ppkwv-4-dha 200 mg oral combo pack 1 pkg PO 01/27/23 Hospital Course Operations None Summary of Care Provided Minutes Spent on Discharge: 15 Hospital Course: Stacey Ellis is a 33 y/o who was admitted on 08/19/23 for induced hypertension and induction of labor. She progressed to complete early on 08/20/23 and delivered without complications. on 08/21/23 She was feeling well and blood pressure in am was 115/63. the decision was made to discharge to home with close outpatient follow up. Plan for her to make an appt for bp check in one week. Physical Exam Const alert, oriented x3 and no apparent distress General Appearance: cooperative and comfortable Resp normal respiratory effort Cardio regular rate GI normal to inspection, nondistended, normoactive bowel sounds GI Narrative: uterus is firm below umbilicus Palpation: soft Back/Spine no CVA tenderness and thoraco-lumbar ROM normal Extremity normal to inspection, no clubbing, cyanosis or edema, no calf tenderness and no pedal edema Psych mental status grossly normal, thought process normal, cooperative, affect normal, speech normal, activity/motor behavior normal, denies homicidal ideation and denies suicidal ideation Weight / BMI Weight Weight: 202 lb 6.4 oz Body Mass Index (BMI) 30.7 ABG / Lab / Microbiology Data 08/19/23 08:00 D/C Instructions Discharge Diet: No restrictions Discharge Activity: Return to Normal Activity, May Not Drive (while taking narcotic pain medications.) and May Shower May resume sexual activity in: 4-6 weeks Call your doctor if your incision/area has: Continuous Slow Oozing, Sudden Increased Bleeding, Increased Pain/ Swelling, Increased Redness and Foul Smelling Discharge Please Follow Up With: Catie Figueroa, DO When: Call [phone] to make an appointment with your doctor in 6 weeks. If you had elevated blood pressure or 4th degree laceration, you will need to be seen in 2 weeks. Meaningful Use Info Meaningful Use Diagnoses (Choose all that apply): None applicable Discharge Plan Admission Admit Date/Time: 08/19/23 06:55 Attending Provider: Catie Figueroa Primary Care Provider: Care Physician,No Primary Discharge Orders/Prescriptions Prescriptions: No Action PNV cmb 50-wklh-[id number]-3-dha 29 mg iron- 1 mg-200 mg combo pack 1 pkg PO Referrals / Follow Up: Care Physician,No Primary [Primary Care Provider] - Disposition Disposition (needs filled in before D/C Order can be placed): Home, Self Care
== END 2023-08-21 10:25 | disposition home or self-care (01) | DRG 806 ==
PROVIDERS: Registered Nurse; Admitting Provider Obstetrics & Gynecology; Visit Provider Obstetrics & Gynecology
DX: O13.4 Gestational [pregnancy-induced] hypertension without significant proteinuria, complicating childbirth (principal); Z37.0 Single live birth; Q93.9 Deletion from autosomes, unspecified; O99.892 Other specified diseases and conditions complicating childbirth; O69.81X0 Labor and delivery complicated by cord around neck, without compression, not applicable or unspecified; Z3A.37 37 weeks gestation of pregnancy
CPT/HCPCS: 59025; 59050; 85025; 85461; 86780; 86850; 86870; 86900; 86901; 90384; 99221; J7120; A4216; G0378; J2405; J2790; J2791